=== PATIENT | male | born 1955 | race Caucasian/White ===

== ENCOUNTER 2021-02-23 08:17 | Inpatient (IN) | payer MEDICARE, OTHER ==
--- NOTE | 2021-02-23 08:32 | EDM.PDOC ---
ED HPI GENERAL MEDICAL PROBLEM - General Chief Complaint: Neuro Symptoms/Deficits Stated Complaint: [facility] Time Seen by Provider: 02/23/21 08:24 Source of Information: Reports: Patient History Limitations: Reports: No Limitations - History of Present Illness INITIAL COMMENTS - FREE TEXT/NARRATIVE: 65-year-old male presents to the ED per [facility] ambulance. Patient apparently lives up near [place], [place]. Apparently he is and his will be coming along shortly. It appears that he developed a left- sided weakness particularly of his arm and leg sometime yesterday afternoon greater than 12 hours ago. He denies headache nausea or vomiting. He thinks he had a little breakfast this morning but he cannot remember. He does not believe he has any trouble swallowing. Patient chews tobacco and apparently drinks alcohol and fairly large quantities on a daily basis. It has been years since he has been seen by Onset: Sudden Onset Date: 02/22/21 Onset Time: 13:00 (To the best of his recollection symptoms started after dinner yesterday.) Duration: Hour(s):, Constant, Getting Worse (Left-sided weakness arm and leg) Location: Reports: Upper Extremity, Left (Left arm and leg weakness), Lower Extremity, Left Quality: Reports: Other (Left arm and leg weakness.) Severity: Severe Improves with: Reports: None Worsens with: Reports: None Context: Reports: Other (Sudden loss of function left arm and leg yesterday p.m.). Denies: Activity, Exercise, Lifting, Sick Contact, Trauma Associated Symptoms: Reports: Cough, Malaise, Shortness of Breath, Weakness (Left arm and leg. Cannot walk.). Denies: Confusion, Chest Pain, cough w sputum (Chronic cough), Diaphoresis, Fever/Chills, Headaches, Loss of Appetite, Nausea/Vomiting, Rash, Seizure, Syncope Treatments CORRECTIONAL TREATMENT SPECIALIST: Reports: Other (see below) (None.) - Related Data Allergies Allergy/AdvReac Type Severity Reaction Status Date / Time No Known Allergies Allergy Verified 02/23/21 08:50 Past Medical History Cardiovascular History: Reports: Hypertension Psychiatric History: Reports: Other (See Below) (Alcohol dependency) Social & Family History - Tobacco Use Tobacco Use Within Last Twelve Months: Smokeless Tobacco - Alcohol Use Alcohol Use History: Yes Days Per Week of Alcohol Use: 7 (Thinks on average 3 beers per day.) Number of Drinks Per Day: 7 Number of Drinks Per Day Comment: 3 Total Drinks Per Week: 49 Alcohol Use in Last Twelve Months: Yes ED ROS GENERAL - Review of Systems Review Of Systems: See Below Constitutional: Reports: Malaise, Weakness, Fatigue, Decreased Appetite. Denies: Fever, Chills HEENT: Reports: Glasses Respiratory: Reports: Shortness of Breath (For reading), Wheezing, Cough, Sputum. Denies: Pleuritic Chest Pain Cardiovascular: Reports: Blood Pressure Problem, Dyspnea on Exertion (Both lower legs.), Edema. Denies: Chest Pain, Claudication, Lightheadedness Endocrine: Reports: Fatigue GI/Abdominal: Reports: Diarrhea (Stools are almost always on the looser side.), Nausea. Denies: Vomiting (Occasional nausea) : Reports: Frequency, Incontinence (Nocturia x3. Occasional incontinence of urine), Other Musculoskeletal: Reports: Back Pain, Joint Pain Skin: Reports: Bruising (Knees hips and neck at times. Bruises easily) Neurological: Reports: Tremors (Intermittently.), Weakness (Weakness left arm and leg developing yesterday). Denies: Confusion, Dizziness, Headache, Numbness , Paresthesia, Tingling, Trouble Speaking, Gait Disturbance Psychiatric: Reports: No Symptoms Hematologic/Lymphatic: Reports: No Symptoms Immunologic: Reports: No Symptoms ED EXAM, NEURO - Physical Exam Exam: See Below Exam Limited By: No Limitations General Appearance: Alert, WD/WN, Mild Distress, Thin (Appears uncapped.), Other (Heart rate is 86/min and sinus. O2 sats 96% on room air. Temperature 36.8 degrees. Blood pressure not yet available) Eye Exam: Bilateral Eye: Other (Purulent debris medial canthus right eye) Ears: Normal TMs Throat/Mouth: Normal Inspection, Normal Oropharynx, Other (Tongue is coated with tobacco chew. Uvula is in the midline). No: Normal Teeth Head Exam: Atraumatic, Normocephalic, Other (No outward signs of head or facial trauma) Neck: Normal Inspection, Supple, Non-Tender, Full Range of Motion. No: Carotid Bruit, Lymphadenopathy (L), Lymphadenopathy (R) Respiratory/Chest: No Respiratory Distress, No Accessory Muscle Use, Wheezing (Scattered expiratory wheezes.). No: Lungs Clear, Normal Breath Sounds Cardiovascular: Regular Rate, Rhythm, No Gallop, No Murmur, No Rub. No: Normal Peripheral Pulses, No Edema GI/Abdominal: Normal Bowel Sounds, Soft, Non-Tender, No Organomegaly, No Mass, Pelvis Stable, Other (Mild umbilical hernia easily reducible.). No: Hepatomegaly, Splenomegaly Neurological: Alert, Normal Mood/Affect, CN II-XII Intact, Oriented x 3, Abnormal Finger to Nose (Unable to perform on the left side.), Other (Patient has a dense left-sided hemiparesis. He is able to clinical supervisor my fingers very lightly on the left side. He cannot lift the arm above his body by more than 3 to 4 inches. He prefers to keep his left knee flexed. He cannot lift the leg off the gurney in full extension.). No: Normal Dorsiflexion, Normal Plantar Flexion, Normal Gait, Normal Reflexes, No Motor/Sensory Deficits DTR: 0: Achilles (R), 1+: Bicep (R), Patella (R), Achilles (L), 3+: Bicep (L), Patella (L) Back Exam: Normal Inspection, Other (Patient requires assistance to be able to set up from the supine position.). No: CVA Tenderness (L), CVA Tenderness (R) Extremities: Pedal Edema (Gross pedal edema both lower extremities worse on the right as compared to the left. 4+ on the right 3+ on the left.), Other Psychiatric: Normal Affect, Normal Mood Skin Exam: Warm, Dry, Intact, Normal Color, No Rash #1 Interpretation EKG Date: 02/23/21 Time: 09:08 Rhythm: NSR Rate (Beats/Min): [address] [place]: Normal P-Wave: Present QRS: Other (Left ventricular hypertrophy pattern with strain. Q waves appreciated in V1 V2 compared with old anteroseptal myocardial infarction) ST-T: Other (Nonspecific T wave flattening in leads I and aVL) QT: Prolonged (Mildly prolonged) EKG Interpretation Comments: Abnormal ECG Course - Vital Signs Last Recorded V/S: Last Vital Signs Temp 36.4 C 02/23/21 12:43 Pulse 77 02/23/21 12:43 Resp 20 02/23/21 12:43 BP 153/84 H 02/23/21 12:43 Pulse Ox 96 08/26/21 12:43 - Orders/Labs/Meds Orders: Active Orders 24 hr Category Date Time Status Admission Status [Patient Status] [ADT] Routine ADT 02/23/21 12:16 Active CULTURE URINE [MREF] Stat Lab 02/23/21 09:35 Received Dextrose 5%-Lactated Ringers 1,000 ml Med 02/23/21 08:45 Active IV ASDIRECTED Medication Orders Atorvastatin Calcium (Atorvastatin 40 Mg Tab) 40 mg PO BEDTIME CLAUDIO Enalaprilat (Enalaprilat 1.25 Mg/Ml Sdv) 1.25 mg IVPUSH Q6H PRN PRN Reason: Hypertension Heparin Sodium (Porcine) (Heparin Sodium 5,000 Units/Ml Vial) 5,000 units SUBCUT Q8H CLAUDIO Dextrose/Lactated Ringer's (Dextrose 5%-Lactated Ringers) 1,000 mls @ 125 mls/hr IV ASDIRECTED CLAUDIO Last Admin: 02/23/21 08:53 Dose: 125 mls/hr Documented by: RENEA Sodium Chloride (Normal Saline) 1,000 mls @ 125 mls/hr IV ASDIRECTED CLAUDIO Miscellaneous Information (Remove Nicotine Patch) 1 ea TRDERM DAILY [facility] Morphine Sulfate (Morphine 2 Mg/Ml Syringe) 2 mg IVPUSH Q2H PRN PRN Reason: Pain (severe 7-10) Stop: 02/24/21 13:20 Nicotine (Nicotine 14 Mg/24 Hr Patch) 14 mg TRDERM DAILY [facility] Ondansetron HCl (Ondansetron 4 Mg Tab.Dis) 4 mg PO Q4H PRN PRN Reason: nausea, able to take PO Labs: Laboratory Tests 02/23/21 02/23/21 02/23/21 Range/Units 08:30 08:30 08:30 WBC 8.99 (4.23-9.07) K/mm3 RBC 4.54 L (4.63-6.08) M/mm3 Hgb 14.2 (13.7-17.5) gm/dl Hct 41.9 (40.1-51.0) % MCV 92.3 H (79.0-92.2) fl MCH 31.3 (25.7-32.2) pg MCHC 33.9 (32.2-35.5) g/dl RDW Std Deviation 46.0 H (35.1-43.9) fL Plt Count 180 (163-337) K/mm3 MPV 10.3 (9.4-12.3) fl Neut % (Auto) 74.2 H (34.0-67.9) % Lymph % (Auto) 17.0 L (21.8-53.1) % [place] % (Auto) 8.0 (5.3-12.2) % Eos % (Auto) 0.4 L (0.8-7.0) Baso % (Auto) 0.3 (0.1-1.2) % Neut # (Auto) 6.66 H (1.78-5.38) K/mm3 Lymph # (Auto) 1.53 (1.32-3.57) K/mm3 [place] # (Auto) 0.72 (0.30-0.82) K/mm3 Eos # (Auto) 0.04 (0.04-0.54) K/mm3 Baso # (Auto) 0.03 (0.01-0.08) K/mm3 PT 11.9 (9.7-12.0) SECONDS INR 1.11 APTT 26.7 (21.7-31.4) SECONDS Sodium 139 (136-145) mEq/L Potassium 3.6 (3.5-5.1) mEq/L Chloride 101 (98-107) mEq/L Carbon Dioxide 29 (21-32) mEq/L Anion Gap 12.6 (5-15) BUN 16 (7-18) mg/dL Creatinine 0.8 (0.7-1.3) mg/dL Est Cr Clr Drug Dosing 80.48 mL/min Estimated GFR (MDRD) > 60 (>60) mL/min BUN/Creatinine Ratio 20.0 H (14-18) Glucose 104 H (70-99) mg/dL Lactic Acid (0.4-2.0) mmol/L Calcium 9.1 (8.5-10.1) mg/dL Magnesium 1.8 (1.8-2.4) mg/dL Total Bilirubin 1.1 H (0.2-1.0) mg/dL GGT (15-85) U/L AST 17 (15-37) U/L ALT 14 L (16-63) U/L Alkaline Phosphatase 69 (46-116) U/L CK-MB (CK-2) 0.8 (0-3.6) ng/ml Troponin I < 0.017 (0.00-0.056) ng/mL C-Reactive Protein 1.3 H* (<1.0) mg/dL NT-Pro-B Natriuret Pep (0-125) pg/mL Total Protein 7.8 (6.4-8.2) g/dl Albumin 3.8 (3.4-5.0) g/dl Globulin 4.0 gm/dL Albumin/Globulin Ratio 1.0 (1-2) PSA Screen (0.0-4.0) ng/mL Urine Color (Yellow) Urine Appearance (Clear) Urine pH (5.0-8.0) Ur Specific [place] (1.005-1.030) Urine Protein (Negative) Urine Glucose (UA) (Negative) Urine Ketones (Negative) Urine Occult Blood (Negative) Urine Nitrite (Negative) Urine Bilirubin (Negative) Urine Urobilinogen (0.2-1.0) Ur Leukocyte Esterase (Negative) U Hyaline Cast (Auto) (0-5) /lpf Urine RBC (0-5) /hpf Urine WBC (0-5) /hpf Urine WBC Clumps (NOT SEEN) /hpf Ur Epithelial Cells (0-5) /hpf Amorphous Sediment (NOT SEEN) /hpf Urine Bacteria (FEW) /hpf Urine Mucus (FEW) /hpf Ethyl Alcohol (0.00) gm% SARS-CoV-2 RNA (GAVIN) (NEGATIVE) 02/23/21 02/23/21 02/23/21 Range/Units 08:30 08:30 08:30 WBC (4.23-9.07) K/mm3 RBC (4.63-6.08) M/mm3 Hgb (13.7-17.5) gm/dl Hct (40.1-51.0) % MCV (79.0-92.2) fl MCH (25.7-32.2) pg MCHC (32.2-35.5) g/dl RDW Std Deviation (35.1-43.9) fL Plt Count (163-337) K/mm3 MPV (9.4-12.3) fl Neut % (Auto) (34.0-67.9) % Lymph % (Auto) (21.8-53.1) % [place] % (Auto) (5.3-12.2) % Eos % (Auto) (0.8-7.0) Baso % (Auto) (0.1-1.2) % Neut # (Auto) (1.78-5.38) K/mm3 Lymph # (Auto) (1.32-3.57) K/mm3 [place] # (Auto) (0.30-0.82) K/mm3 Eos # (Auto) (0.04-0.54) K/mm3 Baso # (Auto) (0.01-0.08) K/mm3 PT (9.7-12.0) SECONDS INR APTT (21.7-31.4) SECONDS Sodium (136-145) mEq/L Potassium (3.5-5.1) mEq/L Chloride (98-107) mEq/L Carbon Dioxide (21-32) mEq/L Anion Gap (5-15) BUN (7-18) mg/dL Creatinine (0.7-1.3) mg/dL Est Cr Clr Drug Dosing mL/min Estimated GFR (MDRD) (>60) mL/min BUN/Creatinine Ratio (14-18) Glucose (70-99) mg/dL Lactic Acid 1.1 (0.4-2.0) mmol/L Calcium (8.5-10.1) mg/dL Magnesium (1.8-2.4) mg/dL Total Bilirubin (0.2-1.0) mg/dL GGT (15-85) U/L AST (15-37) U/L ALT (16-63) U/L Alkaline Phosphatase (46-116) U/L CK-MB (CK-2) (0-3.6) ng/ml Troponin I (0.00-0.056) ng/mL C-Reactive Protein (<1.0) mg/dL NT-Pro-B Natriuret Pep 3090 H (0-125) pg/mL Total Protein (6.4-8.2) g/dl Albumin (3.4-5.0) g/dl Globulin gm/dL Albumin/Globulin Ratio (1-2) PSA Screen (0.0-4.0) ng/mL Urine Color (Yellow) Urine Appearance (Clear) Urine pH (5.0-8.0) Ur Specific [place] (1.005-1.030) Urine Protein (Negative) Urine Glucose (UA) (Negative) Urine Ketones (Negative) Urine Occult Blood (Negative) Urine Nitrite (Negative) Urine Bilirubin (Negative) Urine Urobilinogen (0.2-1.0) Ur Leukocyte Esterase (Negative) U Hyaline Cast (Auto) (0-5) /lpf Urine RBC (0-5) /hpf Urine WBC (0-5) /hpf Urine WBC Clumps (NOT SEEN) /hpf Ur Epithelial Cells (0-5) /hpf Amorphous Sediment (NOT SEEN) /hpf Urine Bacteria (FEW) /hpf Urine Mucus (FEW) /hpf Ethyl Alcohol (0.00) gm% SARS-CoV-2 RNA (GAVIN) Negative (NEGATIVE) 02/23/21 02/23/21 02/23/21 Range/Units 08:30 08:30 08:31 WBC (4.23-9.07) K/mm3 RBC (4.63-6.08) M/mm3 Hgb (13.7-17.5) gm/dl Hct (40.1-51.0) % MCV (79.0-92.2) fl MCH (25.7-32.2) pg MCHC (32.2-35.5) g/dl RDW Std Deviation (35.1-43.9) fL Plt Count (163-337) K/mm3 MPV (9.4-12.3) fl Neut % (Auto) (34.0-67.9) % Lymph % (Auto) (21.8-53.1) % [place] % (Auto) (5.3-12.2) % Eos % (Auto) (0.8-7.0) Baso % (Auto) (0.1-1.2) % Neut # (Auto) (1.78-5.38) K/mm3 Lymph # (Auto) (1.32-3.57) K/mm3 [place] # (Auto) (0.30-0.82) K/mm3 Eos # (Auto) (0.04-0.54) K/mm3 Baso # (Auto) (0.01-0.08) K/mm3 PT (9.7-12.0) SECONDS INR APTT (21.7-31.4) SECONDS Sodium (136-145) mEq/L Potassium (3.5-5.1) mEq/L Chloride (98-107) mEq/L Carbon Dioxide (21-32) mEq/L Anion Gap (5-15) BUN (7-18) mg/dL Creatinine (0.7-1.3) mg/dL Est Cr Clr Drug Dosing mL/min Estimated GFR (MDRD) (>60) mL/min BUN/Creatinine Ratio (14-18) Glucose (70-99) mg/dL Lactic Acid (0.4-2.0) mmol/L Calcium (8.5-10.1) mg/dL Magnesium (1.8-2.4) mg/dL Total Bilirubin (0.2-1.0) mg/dL GGT 26 (15-85) U/L AST (15-37) U/L ALT (16-63) U/L Alkaline Phosphatase (46-116) U/L CK-MB (CK-2) (0-3.6) ng/ml Troponin I (0.00-0.056) ng/mL C-Reactive Protein (<1.0) mg/dL NT-Pro-B Natriuret Pep (0-125) pg/mL Total Protein (6.4-8.2) g/dl Albumin (3.4-5.0) g/dl Globulin gm/dL Albumin/Globulin Ratio (1-2) PSA Screen 0.3 (0.0-4.0) ng/mL Urine Color Yellow (Yellow) Urine Appearance Clear (Clear) Urine pH 7.0 (5.0-8.0) Ur Specific [place] 1.020 (1.005-1.030) Urine Protein Negative (Negative) Urine Glucose (UA) Negative (Negative) Urine Ketones Negative (Negative) Urine Occult Blood 1+ H (Negative) Urine Nitrite Negative (Negative) Urine Bilirubin Negative (Negative) Urine Urobilinogen 1.0 (0.2-1.0) Ur Leukocyte Esterase 3+ H (Negative) U Hyaline Cast (Auto) 0-5 (0-5) /lpf Urine RBC 10-20 H (0-5) /hpf Urine WBC 50-75 H (0-5) /hpf Urine WBC Clumps Few (NOT SEEN) /hpf Ur Epithelial Cells Not seen (0-5) /hpf Amorphous Sediment Many H (NOT SEEN) /hpf Urine Bacteria Many H (FEW) /hpf Urine Mucus Not seen (FEW) /hpf Ethyl Alcohol 0.00 (0.00) gm% SARS-CoV-2 RNA (GAVIN) (NEGATIVE) Meds: Medications Generic Name Dose Route Start Last Admin Trade Name Bailee PRN Reason Stop Dose Admin Atorvastatin Calcium 40 mg 02/23/21 21:00 Atorvastatin 40 Mg Tab PO BEDTIME CLAUDIO Enalaprilat 1.25 mg 02/23/21 13:48 Enalaprilat 1.25 Mg/Ml Sdv IVPUSH Q6H PRN Hypertension Heparin Sodium (Porcine) 5,000 units 02/23/21 14:00 Heparin Sodium 5,000 Units/Ml Vial SUBCUT Q8H CLAUDIO Dextrose/Lactated Ringer's 1,000 mls @ 125 mls/hr 02/23/21 08:45 02/23/21 08:53 Dextrose 5%-Lactated Ringers IV 125 mls/hr ASDIRECTED CLAUDIO Administration Sodium Chloride 1,000 mls @ 125 mls/hr 02/23/21 13:30 Normal Saline IV ASDIRECTED CLAUDIO Miscellaneous Information 1 ea 02/25/21 09:00 Remove Nicotine Patch TRDERM DAILY [facility] Morphine Sulfate 2 mg 02/23/21 13:18 Morphine 2 Mg/Ml Syringe IVPUSH 02/24/21 13:20 Q2H PRN Pain (severe 7-10) Nicotine 14 mg 02/24/21 09:00 Nicotine 14 Mg/24 Hr Patch TRDERM DAILY [facility] Ondansetron HCl 4 mg 02/23/21 13:18 Ondansetron 4 Mg Tab.Dis PO Q4H PRN nausea, able to take PO Discontinued Medications Generic Name Dose Route Start Last Admin Trade Name Bailee PRN Reason Stop Dose Admin Amlodipine Besylate 10 mg 02/23/21 12:12 02/23/21 12:22 Amlodipine 10 Mg Tab PO 02/23/21 12:13 10 mg ONETIME ONE Administration Enalaprilat 1.25 mg 02/23/21 12:13 02/23/21 12:32 Enalaprilat 1.25 Mg/Ml Sdv IVPUSH 02/23/21 12:14 1.25 mg ONETIME ONE Administration Ceftriaxone Sodium 2 gm/ 100 mls @ 200 mls/hr 02/23/21 12:20 02/23/21 12:39 Sodium Chloride IV 02/23/21 12:49 200 mls/hr ONETIME ONE Administration Labetalol HCl 20 mg 02/23/21 12:12 02/23/21 12:25 Labetalol 100 Mg/20 Ml Mdv IVPUSH 02/23/21 12:13 20 mg ONETIME ONE Administration Protocol Lorazepam 1 mg 02/23/21 09:44 02/23/21 09:59 Lorazepam 2 Mg/Ml Sdv IVPUSH 02/23/21 09:45 1 mg ONETIME ONE Administration - Radiology Interpretation Free Text/Narrative:: 65-year-old male presents to the ED per [facility] ambulance from his residence up near [place], [place]. History suggest he is a heavy alcoholic user on a daily basis and chews tobacco. He has not seen a doctor for many years. Abatement Worker appreciated his blood pressure was markedly elevated at 220/122 when they picked him up. Patient denies headache. He has a dense left- sided hemiparesis which apparently started yesterday p.m. shortly after noon but he is not sure. We will confirm this with his when she arrives. At any rate he appears to be outside of the window for any thrombolytic therapy. He will have CT of his head performed. Routine labs performed including a COVID-19 screen as he will require hospitalization as he is unable to walk. - Re-Assessments/Exams Free Text/Narrative Re-Assessment/Exam: 02/23/21 09:13 CT of the head has been performed without IV contrast. It was compared with prior MRI of the brain done on 28 February 2011. Ventricles along with the basal cisterns and sulci over the convexities are moderately prominent. Diminished density is noted within the periventricular and subcortical white matter. Old lacunar infarcts are noted within the basal ganglia on both sides. Atrophy is also noted within the cerebellum. Old lacunar infarct is noted within the white matter of the left cerebellum. No other abnormal parenchymal densities are seen. No evidence of intracranial hemorrhage is seen. No midline shift or mass-effect is seen. Bone window settings were reviewed which show no acute abnormality within the visualized mastoid or paranasal sinuses. No acute calvarial abnormality is appreciated. Chest x-ray done portably reveals heart has a slight left ventricular configuration. Tortuous thoracic aorta is seen. Several nodules are noted within the left lung base which appear fairly dense and most likely represent granulomas. Lungs otherwise are clear. Degenerative changes noted within the left shoulder. Mild scoliosis is noted within the spine. Osteopenia is noted. Carotid artery calcification is seen. 02/23/21 09:45 is here now and she believes that she noticed left-sided weakness around 1400 hrs. 2 days ago February 21. He is quite agitated at this time about all of the aguilar on. His believes that he will not lie still in the MRI suite. He will therefore be given Ativan 1 mg IV pretest. 02/23/21 10:04 White count is 8.99 with 74.2% neutrophils. Hemoglobin is 14.2 with hematocrit of 41.9. MCV is 92.3. Platelet counts 180,000. PT is 11.9 with an INR of 1.11. PTT is 26.7. Sodium 139 with potassium of 3.6. Chloride 101 with a bicarb of 29. Anion gap is 12.6. BUN is 16 with a creatinine of 0.8 and a GFR greater than 60. Glucose is 104. Lactic acid is 1.1. Calcium is 9.1. Magnesium is 1.8. Bilirubin minimally elevated at 1.1. GGT is 26. AST is 17. ALT is 14 alkaline phosphatase is 69. CK-MB fraction is 0.8 with a troponin I of less than 0.017. C-reactive protein is 1.3. BNP is elevated at 3090. Total protein 7.8 with an albumin fraction of 3.8. Blood alcohol at this time is 0.00. COVID-19 screen is negative. 02/23/21 11:47 MRI of the brain has been completed without contrast. Ventricles along with the basal cisterns and sulci over the convexities are moderately prominent. Scattered areas of increased signal are seen within the periventricular and subcortical white matter compatible with small vessel ischemic demyelination change. Scattered lacunar infarcts are seen. Small diffusion abnormalities are noted within the right periventricular white matter located in the parietal region as well as the right manzanares radiata. This is compatible with small acute white matter infarcts. 02/23/21 12:13 I discussed the findings with the patient's . 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 She has many doctors appointments for him several times over the last 5 years and he will get in the car to go to the doctor. He used to be on Bystolic and we believe lisinopril for hypertension control. Blood pressure remains elevated anywhere from 182-225 systolic over 104-128. These values are inaccurate as the patient continues to move in response to blood pressure cuff filling. I am going to give him labetalol 20 mg IV and Vasotec 1.25 mg IV to bring his pressure down to around 160 systolic. He will also be given amlodipine 10 mg p.o. which will start working in 2 to 4 hours. I discussed the case with Dr. Dane Tony on-call hospitalist and the plan will be to admit the patient to the [facility] surgery floor. Admission orders will be placed at this time. 02/23/21 12:20 Urinalysis reveals 3+ leukocyte esterase and 1+ occult blood. The smear reveals 10-20 RBCs per high-power field and 50-75 white blood cells per high-power field with many bacteria appreciated. Urine culture will be ordered. Likely has prostatitis. Patient will be given Rocephin 2 g I 02/23/21 13:00: Blood pressure has come down to 150/88. Departure - Departure Time of Disposition: 13:30 Disposition: Admitted As Inpatient 64 Condition: Serious Clinical Impression: Malignant hypertension Cerebrovascular accident Qualifiers: CVA mechanism: thrombosis Precerebral and cerebral artery: middle cerebral artery Laterality of affected vessel: right Qualified Code(s): I63.311 - Cerebral infarction due to thrombosis of right middle cerebral artery Urinary tract infection Qualifiers: Urinary tract infection type: site unspecified Hematuria presence: without hematuria Qualified Code(s): N39.0 - Urinary tract infection, site not specified - Discharge Information Sepsis Event Note (ED) - Focused Exam Vital Signs: Vital Signs Temp Pulse Resp BP BP Pulse Ox 02/23/21 12:43 36.4 C 77 20 153/84 H 96 02/23/21 12:32 196/92 H 02/23/21 12:22 200/108 H 02/23/21 11:34 91 16 222/123 H 97 02/23/21 08:56 84 22 H 189/108 H 97 02/23/21 08:34 36.9 C 89 16 215/119 H 99 - My Orders Last 24 Hours: My Active Orders 02/23/21 08:45 Dextrose 5%-Lactated Ringers 1,000 ml IV ASDIRECTED 02/23/21 09:35 CULTURE URINE [MREF] Stat 02/23/21 12:16 Admission Status [Patient Status] [ADT] Routine - Assessment/Plan Last 24 Hours: My Active Orders 02/23/21 08:45 Dextrose 5%-Lactated Ringers 1,000 ml IV ASDIRECTED 02/23/21 09:35 CULTURE URINE [MREF] Stat 02/23/21 12:16 Admission Status [Patient Status] [ADT] Routine
[2021-02-23] MEDS ORDERED: Dextrose 5%-Lactated Ringers 1,000 ML IV SCH (08:45)
--- NOTE | 2021-02-23 08:54 | CT ---
Head CT Technique: Multiple axial sections were obtained through the brain. Intravenous contrast was not utilized. Reconstructed coronal and sagittal images were obtained. Comparison: Prior MRI brain of 02/28/11. Findings: Ventricles along with basal cisterns and sulci over the convexities are moderately prominent. Diminished density is noted within the periventricular and subcortical white matter. Old lacunar infarcts are noted within the basal ganglia on both sides. Atrophy is also noted within the cerebellum. Old lacunar infarct is noted within the white matter of the left cerebellum. No other abnormal parenchymal densities are seen. No evidence of intracranial hemorrhage is seen. No midline shift or mass-effect is seen. Bone window settings were reviewed which show no acute abnormality within the visualized mastoid or paranasal sinuses. No acute calvarial abnormality is appreciated. Impression: 1. Diffuse senescent change as described above. This change has increased from previous MRI. 2. No definite acute intracranial abnormality is appreciated. Please correlate if MRI is needed for further evaluation. Diagnostic code #2
--- NOTE | 2021-02-23 09:02 | CR ---
Chest: Portable view of the chest was obtained. Comparison: No prior chest imaging is available. Heart has a slight left ventricular configuration. Tortuous thoracic aorta is seen. Several nodules are noted within the left lung base which appear fairly dense and most likely represent granulomas. Lungs otherwise are clear. Degenerative change is noted within the left shoulder. Mild scoliosis is noted within the spine. Osteopenia is noted. Carotid artery calcification is seen. Impression: 1. Findings as described above. 2. Nothing acute is otherwise seen. Diagnostic code #2
[2021-02-23] MEDS ORDERED: LORazepam 2 MG/ML SDV IVPUSH ONE (09:44)
--- NOTE | 2021-02-23 11:34 | MR ---
MRI brain Technique: T1 sagittal; T2, T2 FLAIR, T1 and diffusion axial; T1 coronal images were also obtained. Comparison: Prior head CT study performed earlier on the same day (8:30 AM). Findings: Ventricles along with basal cisterns and sulci over the convexities are moderately prominent. Scattered areas of increased signal are seen within the periventricular and subcortical white matter compatible with small vessel ischemic demyelination change. Scattered lacunar infarcts are seen. Small diffusion abnormalities are noted within the right periventricular white matter located in the parietal region as well as the right manzanares radiata. This is compatible with small acute white matter infarcts. Impression: 1. Diffuse senescent change as noted above. 2. Several small acute white matter infarcts within the periventricular white matter in the right parietal region and adjacent small area within the right manzanares radiata. 3. No other acute abnormality is appreciated. Diagnostic code #3
[2021-02-23] MEDS ORDERED: amLODIPine 10 MG Tab PO ONE (12:12)
[2021-02-23] MEDS ORDERED: Labetalol 100 MG/20 ML MDV IVPUSH ONE (12:12)
[2021-02-23] MEDS ORDERED: Enalaprilat 1.25 MG/ML SDV IVPUSH ONE (12:13)
[2021-02-23] MEDS ORDERED: cefTRIAXone 2 GM in Sodium Chloride 0.9% 100 ML IV ONE (12:20)
[2021-02-23] MEDS ORDERED: Morphine 2 MG/ML SYRINGE IVPUSH PRN (13:18)
[2021-02-23] MEDS ORDERED: Ondansetron 4 MG Tab.DIS PO PRN (13:18)
--- NOTE | 2021-02-23 13:31 | PCM.HP.2 ---
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 Source of Information: Patient, Family History Limitations: Reports: No Limitations - History of Present Illness Onset of Symptoms: Reports: Sudden Duration of Symptoms: Reports: Day(s): (Symptoms started 2 days ago.) Location: Reports: Generalized Severity: Mild Improves with: Reports: None Worsens with: Reports: None Associated Symptoms: Reports: Cough (Cough when eating and drinking) - Related Data Allergies/Adverse Reactions: Allergies Allergy/AdvReac Type Severity Reaction Status Date / Time No Known Allergies Allergy Verified 02/23/21 08:50 Past Medical History HEENT History: Reports: Hard of Hearing Cardiovascular History: Reports: Hypertension Respiratory History: Reports: None Gastrointestinal History: Reports: None Genitourinary History: Reports: None Musculoskeletal History: Reports: None Neurological History: Reports: CVA Psychiatric History: Reports: Other (See Below) (Alcohol dependency) Endocrine/Metabolic History: Reports: None Hematologic History: Reports: None Immunologic History: Reports: None Oncologic (Cancer) History: Reports: None Dermatologic History: Reports: None - Infectious Disease History Infectious Disease History: Reports: None Social & Family History - Tobacco Use Tobacco Use Status *Q: Current Every Day Tobacco User Tobacco Use Within Last Twelve Months: Smokeless Tobacco - Alcohol Use Days Per Week of Alcohol Use: 7 (Thinks on average 3 beers per day.) Number of Drinks Per Day: 7 Total Drinks Per Week: 49 - Recreational Drug Use Recreational Drug Use: No - Living Situation & Occupation Living situation: Reports: , with Spouse 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) H&P Review of Systems - Review of Systems: Review Of Systems: See Below General: Reports: Weakness HEENT: Reports: Hearing Changes Pulmonary: Reports: No Symptoms Cardiovascular: Reports: Edema Gastrointestinal: Reports: No Symptoms Genitourinary: Reports: No Symptoms Musculoskeletal: Reports: No Symptoms Skin: Reports: No Symptoms Psychiatric: Reports: No Symptoms Neurological: Reports: Numbness, Difficulty Walking, Weakness, Change in Speech Hematologic/Lymphatic: Reports: No Symptoms Immunologic: Reports: No Symptoms Exam - Exam Exam: See Below - Vital Signs Vital Signs: Last Vital Signs Temp 36.4 C 02/23/21 12:43 Pulse 77 02/23/21 12:43 Resp 20 02/23/21 12:43 BP 153/84 H 02/23/21 12:43 Pulse Ox 96 02/23/21 12:43 Weight: 63.503 kg - Exam Quality Assessment: No: Supplemental Oxygen, DVT Prophylaxis General: Alert, Oriented, Cooperative HEENT: Conjunctiva Clear, EACs Clear, EOMI, Posterior Pharynx Clear (No uvula deviation), Other (Left-sided facial droop with left weakness and opening eye.), PERRLA. No: Hearing Intact (Hard of hearing), Mucosa Moist & [place] (Poor dentition, tobacco particles present) Neck: Supple, Trachea Midline Lungs: Clear to Auscultation, Normal Respiratory Effort Cardiovascular: Regular Rate, Regular Rhythm GI/Abdominal Exam: Normal Bowel Sounds, Soft, Non-Tender, No Distention (Male) Exam: Deferred Rectal (Males) Exam: Deferred Back Exam: No: Normal Inspection (Unable to set up), Full Range of Motion Extremities: Pedal Edema. No: Normal Inspection (Spastic left hemiparesis), Normal Range of Motion Skin: Warm, Dry, Intact Neurological: Hyperreflexia. No: Cranial Nerves Intact, Strength Equal Bilateral, Normal Gait (Left-sided hemiparesis) Neuro Extensive - Mental Status: Alert, Oriented x3, Memory Intact Neuro Extensive - Motor, Sensory, Reflexes: Abnormal Gait, Dysarthria, Facial Pa lsy wo Forehead, Hemeplagia (L). No: CN II-XII Intact (Left-sided facial droop with cranial nerve III weakness), Normal Reflexes, Receptive Aphasia, Expressive Aphasia Psychiatric: Alert, Normal Affect, Normal Mood - Patient Data Lab Results Last 24 hrs: Laboratory Results - last 24 hr 02/23/21 02/23/21 02/23/21 Range/Units 08:30 08:30 08:30 WBC 8.99 (4.23-9.07) K/mm3 RBC 4.54 L (4.63-6.08) M/mm3 Hgb 14.2 (13.7-17.5) gm/dl Hct 41.9 (40.1-51.0) % MCV 92.3 H (79.0-92.2) fl MCH 31.3 (25.7-32.2) pg MCHC 33.9 (32.2-35.5) g/dl RDW Std Deviation 46.0 H (35.1-43.9) fL Plt Count 180 (163-337) K/mm3 MPV 10.3 (9.4-12.3) fl Neut % (Auto) 74.2 H (34.0-67.9) % Lymph % (Auto) 17.0 L (21.8-53.1) % [place] % (Auto) 8.0 (5.3-12.2) % Eos % (Auto) 0.4 L (0.8-7.0) Baso % (Auto) 0.3 (0.1-1.2) % Neut # (Auto) 6.66 H (1.78-5.38) K/mm3 Lymph # (Auto) 1.53 (1.32-3.57) K/mm3 [place] # (Auto) 0.72 (0.30-0.82) K/mm3 Eos # (Auto) 0.04 (0.04-0.54) K/mm3 Baso # (Auto) 0.03 (0.01-0.08) K/mm3 PT 11.9 (9.7-12.0) SECONDS INR 1.11 APTT 26.7 (21.7-31.4) SECONDS Sodium 139 (136-145) mEq/L Potassium 3.6 (3.5-5.1) mEq/L Chloride 101 (98-107) mEq/L Carbon Dioxide 29 (21-32) mEq/L Anion Gap 12.6 (5-15) BUN 16 (7-18) mg/dL Creatinine 0.8 (0.7-1.3) mg/dL Est Cr Clr Drug Dosing 80.48 mL/min Estimated GFR (MDRD) > 60 (>60) mL/min BUN/Creatinine Ratio 20.0 H (14-18) Glucose 104 H (70-99) mg/dL Lactic Acid (0.4-2.0) mmol/L Calcium 9.1 (8.5-10.1) mg/dL Magnesium 1.8 (1.8-2.4) mg/dL Total Bilirubin 1.1 H (0.2-1.0) mg/dL GGT (15-85) U/L AST 17 (15-37) U/L ALT 14 L (16-63) U/L Alkaline Phosphatase 69 (46-116) U/L CK-MB (CK-2) 0.8 (0-3.6) ng/ml Troponin I < 0.017 (0.00-0.056) ng/mL C-Reactive Protein 1.3 H* (<1.0) mg/dL NT-Pro-B Natriuret Pep (0-125) pg/mL Total Protein 7.8 (6.4-8.2) g/dl Albumin 3.8 (3.4-5.0) g/dl Globulin 4.0 gm/dL Albumin/Globulin Ratio 1.0 (1-2) Urine Color (Yellow) Urine Appearance (Clear) Urine pH (5.0-8.0) Ur Specific [place] (1.005-1.030) Urine Protein (Negative) Urine Glucose (UA) (Negative) Urine Ketones (Negative) Urine Occult Blood (Negative) Urine Nitrite (Negative) Urine Bilirubin (Negative) Urine Urobilinogen (0.2-1.0) Ur Leukocyte Esterase (Negative) U Hyaline Cast (Auto) (0-5) /lpf Urine RBC (0-5) /hpf Urine WBC (0-5) /hpf Urine WBC Clumps (NOT SEEN) /hpf Ur Epithelial Cells (0-5) /hpf Amorphous Sediment (NOT SEEN) /hpf Urine Bacteria (FEW) /hpf Urine Mucus (FEW) /hpf Ethyl Alcohol (0.00) gm% SARS-CoV-2 RNA (GAVIN) (NEGATIVE) 02/23/21 02/23/21 02/23/21 Range/Units 08:30 08:30 08:30 WBC (4.23-9.07) K/mm3 RBC (4.63-6.08) M/mm3 Hgb (13.7-17.5) gm/dl Hct (40.1-51.0) % MCV (79.0-92.2) fl MCH (25.7-32.2) pg MCHC (32.2-35.5) g/dl RDW Std Deviation (35.1-43.9) fL Plt Count (163-337) K/mm3 MPV (9.4-12.3) fl Neut % (Auto) (34.0-67.9) % Lymph % (Auto) (21.8-53.1) % [place] % (Auto) (5.3-12.2) % Eos % (Auto) (0.8-7.0) Baso % (Auto) (0.1-1.2) % Neut # (Auto) (1.78-5.38) K/mm3 Lymph # (Auto) (1.32-3.57) K/mm3 [place] # (Auto) (0.30-0.82) K/mm3 Eos # (Auto) (0.04-0.54) K/mm3 Baso # (Auto) (0.01-0.08) K/mm3 PT (9.7-12.0) SECONDS INR APTT (21.7-31.4) SECONDS Sodium (136-145) mEq/L Potassium (3.5-5.1) mEq/L Chloride (98-107) mEq/L Carbon Dioxide (21-32) mEq/L Anion Gap (5-15) BUN (7-18) mg/dL Creatinine (0.7-1.3) mg/dL Est Cr Clr Drug Dosing mL/min Estimated GFR (MDRD) (>60) mL/min BUN/Creatinine Ratio (14-18) Glucose (70-99) mg/dL Lactic Acid 1.1 (0.4-2.0) mmol/L Calcium (8.5-10.1) mg/dL Magnesium (1.8-2.4) mg/dL Total Bilirubin (0.2-1.0) mg/dL GGT (15-85) U/L AST (15-37) U/L ALT (16-63) U/L Alkaline Phosphatase (46-116) U/L CK-MB (CK-2) (0-3.6) ng/ml Troponin I (0.00-0.056) ng/mL C-Reactive Protein (<1.0) mg/dL NT-Pro-B Natriuret Pep 3090 H (0-125) pg/mL Total Protein (6.4-8.2) g/dl Albumin (3.4-5.0) g/dl Globulin gm/dL Albumin/Globulin Ratio (1-2) Urine Color (Yellow) Urine Appearance (Clear) Urine pH (5.0-8.0) Ur Specific [place] (1.005-1.030) Urine Protein (Negative) Urine Glucose (UA) (Negative) Urine Ketones (Negative) Urine Occult Blood (Negative) Urine Nitrite (Negative) Urine Bilirubin (Negative) Urine Urobilinogen (0.2-1.0) Ur Leukocyte Esterase (Negative) U Hyaline Cast (Auto) (0-5) /lpf Urine RBC (0-5) /hpf Urine WBC (0-5) /hpf Urine WBC Clumps (NOT SEEN) /hpf Ur Epithelial Cells (0-5) /hpf Amorphous Sediment (NOT SEEN) /hpf Urine Bacteria (FEW) /hpf Urine Mucus (FEW) /hpf Ethyl Alcohol (0.00) gm% SARS-CoV-2 RNA (GAVIN) Negative (NEGATIVE) 02/23/21 02/23/21 Range/Units 08:30 08:31 WBC (4.23-9.07) K/mm3 RBC (4.63-6.08) M/mm3 Hgb (13.7-17.5) gm/dl Hct (40.1-51.0) % MCV (79.0-92.2) fl MCH (25.7-32.2) pg MCHC (32.2-35.5) g/dl RDW Std Deviation (35.1-43.9) fL Plt Count (163-337) K/mm3 MPV (9.4-12.3) fl Neut % (Auto) (34.0-67.9) % Lymph % (Auto) (21.8-53.1) % [place] % (Auto) (5.3-12.2) % Eos % (Auto) (0.8-7.0) Baso % (Auto) (0.1-1.2) % Neut # (Auto) (1.78-5.38) K/mm3 Lymph # (Auto) (1.32-3.57) K/mm3 [place] # (Auto) (0.30-0.82) K/mm3 Eos # (Auto) (0.04-0.54) K/mm3 Baso # (Auto) (0.01-0.08) K/mm3 PT (9.7-12.0) SECONDS INR APTT (21.7-31.4) SECONDS Sodium (136-145) mEq/L Potassium (3.5-5.1) mEq/L Chloride (98-107) mEq/L Carbon Dioxide (21-32) mEq/L Anion Gap (5-15) BUN (7-18) mg/dL Creatinine (0.7-1.3) mg/dL Est Cr Clr Drug Dosing mL/min Estimated GFR (MDRD) (>60) mL/min BUN/Creatinine Ratio (14-18) Glucose (70-99) mg/dL Lactic Acid (0.4-2.0) mmol/L Calcium (8.5-10.1) mg/dL Magnesium (1.8-2.4) mg/dL Total Bilirubin (0.2-1.0) mg/dL GGT 26 (15-85) U/L AST (15-37) U/L ALT (16-63) U/L Alkaline Phosphatase (46-116) U/L CK-MB (CK-2) (0-3.6) ng/ml Troponin I (0.00-0.056) ng/mL C-Reactive Protein (<1.0) mg/dL NT-Pro-B Natriuret Pep (0-125) pg/mL Total Protein (6.4-8.2) g/dl Albumin (3.4-5.0) g/dl Globulin gm/dL Albumin/Globulin Ratio (1-2) Urine Color Yellow (Yellow) Urine Appearance Clear (Clear) Urine pH 7.0 (5.0-8.0) Ur Specific [place] 1.020 (1.005-1.030) Urine Protein Negative (Negative) Urine Glucose (UA) Negative (Negative) Urine Ketones Negative (Negative) Urine Occult Blood 1+ H (Negative) Urine Nitrite Negative (Negative) Urine Bilirubin Negative (Negative) Urine Urobilinogen 1.0 (0.2-1.0) Ur Leukocyte Esterase 3+ H (Negative) U Hyaline Cast (Auto) 0-5 (0-5) /lpf Urine RBC 10-20 H (0-5) /hpf Urine WBC 50-75 H (0-5) /hpf Urine WBC Clumps Few (NOT SEEN) /hpf Ur Epithelial Cells Not seen (0-5) /hpf Amorphous Sediment Many H (NOT SEEN) /hpf Urine Bacteria Many H (FEW) /hpf Urine Mucus Not seen (FEW) /hpf Ethyl Alcohol 0.00 (0.00) gm% SARS-CoV-2 RNA (GAVIN) (NEGATIVE) Result Diagrams: 02/23/21 08:30 02/23/21 08:30 Sepsis Event Note - Focused Exam Vital Signs: Vital Signs Temp Pulse Resp BP BP Pulse Ox 02/23/21 12:43 36.4 C 77 20 153/84 H 96 02/23/21 12:32 196/92 H 02/23/21 12:22 200/108 H 02/23/21 11:34 91 16 222/123 H 97 02/23/21 08:56 84 22 H 189/108 H 97 02/23/21 08:34 36.9 C 89 16 215/119 H 99 *Q Meaningful Use (ADM) - VTE *Q VTE Mechanical Contraindications *Q: At Risk for Falls - Problem List (1) Acute cerebrovascular accident (CVA) due to embolism of right middle cerebral artery SNOMED Code(s): 034390791536968677 ICD Code: I63.411 - CEREB INFRC DUE TO EMBOLISM OF RIGHT MIDDLE CEREBRAL ARTERY Status: Acute Priority: High Current Visit: Yes (2) Hypertension SNOMED Code(s): 85755430 ICD Code: I10 - ESSENTIAL (PRIMARY) HYPERTENSION Status: Acute Priority: High Current Visit: Yes Problem Details: The patient requires permissive hypertension with systolic blood pressure between 150 and 170 mmHg to assist with cerebral perfusion Qualifiers: Hypertension type: primary hypertension Qualified Code(s): I10 - Essential (primary) hypertension (3) Spastic hemiparesis of left nondominant side due to acute cerebral infarction SNOMED Code(s): 779202947, 828670263 ICD Code: I63.9 - CEREBRAL INFARCTION, UNSPECIFIED; G81.14 - SPASTIC H EMIPLEGIA AFFECTING LEFT NONDOMINANT SIDE Status: Acute Priority: High Current Visit: Yes (4) Dysphagia due to recent cerebrovascular accident SNOMED Code(s): 73551369, 391017218 ICD Code: I69.391 - DYSPHAGIA FOLLOWING CEREBRAL INFARCTION Status: Acute Priority: High Current Visit: Yes (5) Pedal edema SNOMED Code(s): 521200210 ICD Code: R60.0 - LOCALIZED EDEMA Status: Acute Priority: High Current Visit: Yes (6) Tobacco use SNOMED Code(s): 615250572 ICD Code: Z72.0 - TOBACCO USE Status: Chronic Priority: High Current Visit: Yes Problem List Initiated/Reviewed/Updated: Yes Orders Last 24hrs: Active Orders 24 hr Category Date Time Status Admission Status [Patient Status] [ADT] Routine ADT 02/23/21 12:16 Active Bedrest Bedside Commode [RC] ASDIRECTED Care 02/23/21 13:18 Ordered Cardiac Monitoring [RC] CONTINUOUS Care 02/23/21 13:19 Ordered Oxygen Therapy [RC] PRN Care 02/23/21 13:18 Ordered VTE/DVT Education [RC] PER UNIT ROUTINE Care 02/23/21 13:18 Ordered Vital Signs [RC] Q4H Care 02/23/21 13:18 Ordered OT Evaluation and Treatment [CONS] Routine Cons 02/23/21 13:18 Ordered PT Evaluation and Treatment [CONS] Routine Cons 02/23/21 13:18 Ordered LIBRARY HISTORIAN Evaluation and Treatment [CONS] Routine Cons 02/23/21 13:18 Ordered Nothing per Oral Now Diet [DIET] Diet 02/23/21 Dinner Ordered Echo 2D wo Cont [US] Urgent Exams 02/23/21 13:18 Ordered CBC WITH AUTO DIFF [HEME] AM Lab 02/24/21 05:11 Ordered COMPREHENSIVE METABOLIC PN,CMP [CHEM] AM Lab 02/24/21 05:11 Ordered CULTURE URINE [MREF] Stat Lab 02/23/21 09:35 Received MAGNESIUM [CHEM] AM Lab 02/24/21 05:11 Ordered PSA SCREEN [CHEM] Stat Lab 02/23/21 08:30 Received Dextrose 5%-Lactated Ringers 1,000 ml Med 02/23/21 08:45 Active IV ASDIRECTED Heparin Sodium Med 02/23/21 13:30 Ordered 5,000 units SUBCUT Q8H Morphine Med 02/23/21 13:18 Ordered 2 mg IVPUSH Q2H PRN Nicotine [Habitrol] Med 02/24/21 09:00 Ordered 14 mg TRDERM DAILY Ondansetron [Zofran ODT] Med 02/23/21 13:18 Ordered 4 mg PO Q4H PRN Sodium Chloride 0.9% @ 125 MLS/HR (1000ml) Med 02/23/21 13:30 Ordered Sodium Chloride 0.9% [Normal Saline] 1,000 ml IV ASDIRECTED VTE Mechanical Contraindications [AST] Per Unit Routine Oth 02/23/21 13:18 Ordered Resuscitation Status Routine Resus Stat 02/23/21 13:18 Ordered Medication Orders Dextrose/Lactated Ringer's (Dextrose 5%-Lactated Ringers) 1,000 mls @ 125 mls/hr IV ASDIRECTED [facility] Last Admin: 02/23/21 08:53 Dose: 125 mls/hr Documented by: RENAE Assessment/Plan Comment:: The patient is a 65-year-old gentleman who has been admitted to acute hospitalization as an inpatient from the emergency department. This is due to stroke that occurred approximately 2 days ago. The patient will require permissive hypertension to keep his blood pressure between 150 and 170 systolic millimeters of mercury. Medications will be added as needed for hypertension. The patient is also NPO currently until swallow eval from speech therapy that has been ordered. The patient is on IV normal saline at 125 mL/h. The patient also has bilateral pedal edema and this is a concern for cardiac issues that may have contributed to his stroke and a 2D echocardiogram has been ordered. The patient does have elevation of his B natruretic peptide at 3000 and this can likely represent hypertensive heart failure. Will monitor the patient's fluid status closely. The patient has dense spastic left-sided hemiparesis and PT OT has also been ordered. The patient will likely require rehabilitation for possible improvement in his situation. The patient has been started on heparin for anticoagulation. The patient has been ordered to have nicotine patch however he says that he can stop chewing tobacco without problems. Upon discharge the patient will likely need to have dual antiplatelet therapy. He is also been started on a statin. Repeat laboratory studies have been ordered. The patient has said that he wants to be resuscitated in spite of having advanced directives recommending DNR/DNI. The patient will be kept in full CODE STATUS for now. - Mortality Measure Prognosis:: Poor
[2021-02-23] MEDS: Heparin Sodium 5,000 Units/ML Vial SUBCUT SCH ×2 (16:58→21:24)
[2021-02-23] MEDS: Sodium Chloride 0.9% 1,000 ML IV SCH (17:00)
[2021-02-23] MEDS: atorvaSTATin 40 MG Tab PO SCH (21:24)
[2021-02-24] MEDS: Sodium Chloride 0.9% 1,000 ML IV SCH ×3 (03:10→19:43)
[2021-02-24] MEDS: Heparin Sodium 5,000 Units/ML Vial SUBCUT SCH ×3 (05:23→21:47)
--- NOTE | 2021-02-24 07:12 | PCM.PN ---
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 Subjective Update: The patient is a 65-year-old gentleman who had been admitted to acute hospitalization on February 23, 2021 due to right parietal stroke. The patient and the patient's had reported that this stroke it happened 48 hours at least prior to presentation. The patient has left-sided spastic hemiparesis. He is confused today. He is not oriented to person or time. Functional Status: Reports: Pain Controlled. Denies: Tolerating Diet (Patient this morning was n.p.o. has had swallow study) - Review of Systems General: Reports: Weakness HEENT: Reports: No Symptoms Pulmonary: Reports: No Symptoms Cardiovascular: Reports: No Symptoms Gastrointestinal: Reports: No Symptoms Genitourinary: Reports: No Symptoms Musculoskeletal: Reports: No Symptoms Skin: Reports: No Symptoms Neurological: Reports: No Symptoms Psychiatric: Reports: No Symptoms Systems Review Comment:: The patient's review of systems is somewhat unreliable as he is confused and disoriented today. - Patient Data Vitals - Most Recent: Last Vital Signs Temp 36.5 C 02/24/21 05:32 Pulse 89 02/24/21 05:32 Resp 20 02/24/21 05:32 BP 171/96 H 02/24/21 05:32 Pulse Ox 96 02/24/21 05:32 Weight - Most Recent: 65.136 kg I&O - Last 24 Hours: Intake & Output 02/23/21 02/24/21 02/24/21 22:59 06:59 14:59 Intake Total 1466 Balance 1466 Lab Results Last 24 Hours: Laboratory Results - last 24 hr 02/23/21 02/23/21 02/23/21 Range/Units 08:30 08:30 08:30 WBC 8.99 (4.23-9.07) K/mm3 RBC 4.54 L (4.63-6.08) M/mm3 Hgb 14.2 (13.7-17.5) gm/dl Hct 41.9 (40.1-51.0) % MCV 92.3 H (79.0-92.2) fl MCH 31.3 (25.7-32.2) pg MCHC 33.9 (32.2-35.5) g/dl RDW Std Deviation 46.0 H (35.1-43.9) fL Plt Count 180 (163-337) K/mm3 MPV 10.3 (9.4-12.3) fl Neut % (Auto) 74.2 H (34.0-67.9) % Lymph % (Auto) 17.0 L (21.8-53.1) % [place] % (Auto) 8.0 (5.3-12.2) % Eos % (Auto) 0.4 L (0.8-7.0) Baso % (Auto) 0.3 (0.1-1.2) % Neut # (Auto) 6.66 H (1.78-5.38) K/mm3 Lymph # (Auto) 1.53 (1.32-3.57) K/mm3 [place] # (Auto) 0.72 (0.30-0.82) K/mm3 Eos # (Auto) 0.04 (0.04-0.54) K/mm3 Baso # (Auto) 0.03 (0.01-0.08) K/mm3 PT 11.9 (9.7-12.0) SECONDS INR 1.11 APTT 26.7 (21.7-31.4) SECONDS Sodium 139 (136-145) mEq/L Potassium 3.6 (3.5-5.1) mEq/L Chloride 101 (98-107) mEq/L Carbon Dioxide 29 (21-32) mEq/L Anion Gap 12.6 (5-15) BUN 16 (7-18) mg/dL Creatinine 0.8 (0.7-1.3) mg/dL Est Cr Clr Drug Dosing 80.48 mL/min Estimated GFR (MDRD) > 60 (>60) mL/min BUN/Creatinine Ratio 20.0 H (14-18) Glucose 104 H (70-99) mg/dL Lactic Acid (0.4-2.0) mmol/L Calcium 9.1 (8.5-10.1) mg/dL Magnesium 1.8 (1.8-2.4) mg/dL Total Bilirubin 1.1 H (0.2-1.0) mg/dL GGT (15-85) U/L AST 17 (15-37) U/L ALT 14 L (16-63) U/L Alkaline Phosphatase 69 (46-116) U/L CK-MB (CK-2) 0.8 (0-3.6) ng/ml Troponin I < 0.017 (0.00-0.056) ng/mL C-Reactive Protein 1.3 H* (<1.0) mg/dL NT-Pro-B Natriuret Pep (0-125) pg/mL Total Protein 7.8 (6.4-8.2) g/dl Albumin 3.8 (3.4-5.0) g/dl Globulin 4.0 gm/dL Albumin/Globulin Ratio 1.0 (1-2) PSA Screen (0.0-4.0) ng/mL Urine Color (Yellow) Urine Appearance (Clear) Urine pH (5.0-8.0) Ur Specific [place] (1.005-1.030) Urine Protein (Negative) Urine Glucose (UA) (Negative) Urine Ketones (Negative) Urine Occult Blood (Negative) Urine Nitrite (Negative) Urine Bilirubin (Negative) Urine Urobilinogen (0.2-1.0) Ur Leukocyte Esterase (Negative) U Hyaline Cast (Auto) (0-5) /lpf Urine RBC (0-5) /hpf Urine WBC (0-5) /hpf Urine WBC Clumps (NOT SEEN) /hpf Ur Epithelial Cells (0-5) /hpf Amorphous Sediment (NOT SEEN) /hpf Urine Bacteria (FEW) /hpf Urine Mucus (FEW) /hpf Ethyl Alcohol (0.00) gm% SARS-CoV-2 RNA (GAVIN) (NEGATIVE) 02/23/21 02/23/21 02/23/21 Range/Units 08:30 08:30 08:30 WBC (4.23-9.07) K/mm3 RBC (4.63-6.08) M/mm3 Hgb (13.7-17.5) gm/dl Hct (40.1-51.0) % MCV (79.0-92.2) fl MCH (25.7-32.2) pg MCHC (32.2-35.5) g/dl RDW Std Deviation (35.1-43.9) fL Plt Count (163-337) K/mm3 MPV (9.4-12.3) fl Neut % (Auto) (34.0-67.9) % Lymph % (Auto) (21.8-53.1) % [place] % (Auto) (5.3-12.2) % Eos % (Auto) (0.8-7.0) Baso % (Auto) (0.1-1.2) % Neut # (Auto) (1.78-5.38) K/mm3 Lymph # (Auto) (1.32-3.57) K/mm3 [place] # (Auto) (0.30-0.82) K/mm3 Eos # (Auto) (0.04-0.54) K/mm3 Baso # (Auto) (0.01-0.08) K/mm3 PT (9.7-12.0) SECONDS INR APTT (21.7-31.4) SECONDS Sodium (136-145) mEq/L Potassium (3.5-5.1) mEq/L Chloride (98-107) mEq/L Carbon Dioxide (21-32) mEq/L Anion Gap (5-15) BUN (7-18) mg/dL Creatinine (0.7-1.3) mg/dL Est Cr Clr Drug Dosing mL/min Estimated GFR (MDRD) (>60) mL/min BUN/Creatinine Ratio (14-18) Glucose (70-99) mg/dL Lactic Acid 1.1 (0.4-2.0) mmol/L Calcium (8.5-10.1) mg/dL Magnesium (1.8-2.4) mg/dL Total Bilirubin (0.2-1.0) mg/dL GGT (15-85) U/L AST (15-37) U/L ALT (16-63) U/L Alkaline Phosphatase (46-116) U/L CK-MB (CK-2) (0-3.6) ng/ml Troponin I (0.00-0.056) ng/mL C-Reactive Protein (<1.0) mg/dL NT-Pro-B Natriuret Pep 3090 H (0-125) pg/mL Total Protein (6.4-8.2) g/dl Albumin (3.4-5.0) g/dl Globulin gm/dL Albumin/Globulin Ratio (1-2) PSA Screen (0.0-4.0) ng/mL Urine Color (Yellow) Urine Appearance (Clear) Urine pH (5.0-8.0) Ur Specific [place] (1.005-1.030) Urine Protein (Negative) Urine Glucose (UA) (Negative) Urine Ketones (Negative) Urine Occult Blood (Negative) Urine Nitrite (Negative) Urine Bilirubin (Negative) Urine Urobilinogen (0.2-1.0) Ur Leukocyte Esterase (Negative) U Hyaline Cast (Auto) (0-5) /lpf Urine RBC (0-5) /hpf Urine WBC (0-5) /hpf Urine WBC Clumps (NOT SEEN) /hpf Ur Epithelial Cells (0-5) /hpf Amorphous Sediment (NOT SEEN) /hpf Urine Bacteria (FEW) /hpf Urine Mucus (FEW) /hpf Ethyl Alcohol (0.00) gm% SARS-CoV-2 RNA (GAVIN) Negative (NEGATIVE) 02/23/21 02/23/21 02/23/21 Range/Units 08:30 08:30 08:31 WBC (4.23-9.07) K/mm3 RBC (4.63-6.08) M/mm3 Hgb (13.7-17.5) gm/dl Hct (40.1-51.0) % MCV (79.0-92.2) fl MCH (25.7-32.2) pg MCHC (32.2-35.5) g/dl RDW Std Deviation (35.1-43.9) fL Plt Count (163-337) K/mm3 MPV (9.4-12.3) fl Neut % (Auto) (34.0-67.9) % Lymph % (Auto) (21.8-53.1) % [place] % (Auto) (5.3-12.2) % Eos % (Auto) (0.8-7.0) Baso % (Auto) (0.1-1.2) % Neut # (Auto) (1.78-5.38) K/mm3 Lymph # (Auto) (1.32-3.57) K/mm3 [place] # (Auto) (0.30-0.82) K/mm3 Eos # (Auto) (0.04-0.54) K/mm3 Baso # (Auto) (0.01-0.08) K/mm3 PT (9.7-12.0) SECONDS INR APTT (21.7-31.4) SECONDS Sodium (136-145) mEq/L Potassium (3.5-5.1) mEq/L Chloride (98-107) mEq/L Carbon Dioxide (21-32) mEq/L Anion Gap (5-15) BUN (7-18) mg/dL Creatinine (0.7-1.3) mg/dL Est Cr Clr Drug Dosing mL/min Estimated GFR (MDRD) (>60) mL/min BUN/Creatinine Ratio (14-18) Glucose (70-99) mg/dL Lactic Acid (0.4-2.0) mmol/L Calcium (8.5-10.1) mg/dL Magnesium (1.8-2.4) mg/dL Total Bilirubin (0.2-1.0) mg/dL GGT 26 (15-85) U/L AST (15-37) U/L ALT (16-63) U/L Alkaline Phosphatase (46-116) U/L CK-MB (CK-2) (0-3.6) ng/ml Troponin I (0.00-0.056) ng/mL C-Reactive Protein (<1.0) mg/dL NT-Pro-B Natriuret Pep (0-125) pg/mL Total Protein (6.4-8.2) g/dl Albumin (3.4-5.0) g/dl Globulin gm/dL Albumin/Globulin Ratio (1-2) PSA Screen 0.3 (0.0-4.0) ng/mL Urine Color Yellow (Yellow) Urine Appearance Clear (Clear) Urine pH 7.0 (5.0-8.0) Ur Specific [place] 1.020 (1.005-1.030) Urine Protein Negative (Negative) Urine Glucose (UA) Negative (Negative) Urine Ketones Negative (Negative) Urine Occult Blood 1+ H (Negative) Urine Nitrite Negative (Negative) Urine Bilirubin Negative (Negative) Urine Urobilinogen 1.0 (0.2-1.0) Ur Leukocyte Esterase 3+ H (Negative) U Hyaline Cast (Auto) 0-5 (0-5) /lpf Urine RBC 10-20 H (0-5) /hpf Urine WBC 50-75 H (0-5) /hpf Urine WBC Clumps Few (NOT SEEN) /hpf Ur Epithelial Cells Not seen (0-5) /hpf Amorphous Sediment Many H (NOT SEEN) /hpf Urine Bacteria Many H (FEW) /hpf Urine Mucus Not seen (FEW) /hpf Ethyl Alcohol 0.00 (0.00) gm% SARS-CoV-2 RNA (GAVIN) (NEGATIVE) 02/24/21 Range/Units 06:25 WBC 6.82 (4.23-9.07) K/mm3 RBC 4.11 L (4.63-6.08) M/mm3 Hgb 12.9 L (13.7-17.5) gm/dl Hct 38.2 L (40.1-51.0) % MCV 92.9 H (79.0-92.2) fl MCH 31.4 (25.7-32.2) pg MCHC 33.8 (32.2-35.5) g/dl RDW Std Deviation 45.7 H (35.1-43.9) fL Plt Count 157 L (163-337) K/mm3 MPV 10.2 (9.4-12.3) fl Neut % (Auto) 63.2 (34.0-67.9) % Lymph % (Auto) 25.1 (21.8-53.1) % [place] % (Auto) 10.4 (5.3-12.2) % Eos % (Auto) 0.7 L (0.8-7.0) Baso % (Auto) 0.3 (0.1-1.2) % Neut # (Auto) 4.31 (1.78-5.38) K/mm3 Lymph # (Auto) 1.71 (1.32-3.57) K/mm3 [place] # (Auto) 0.71 (0.30-0.82) K/mm3 Eos # (Auto) 0.05 (0.04-0.54) K/mm3 Baso # (Auto) 0.02 (0.01-0.08) K/mm3 PT (9.7-12.0) SECONDS INR APTT (21.7-31.4) SECONDS Sodium (136-145) mEq/L Potassium (3.5-5.1) mEq/L Chloride (98-107) mEq/L Carbon Dioxide (21-32) mEq/L Anion Gap (5-15) BUN (7-18) mg/dL Creatinine (0.7-1.3) mg/dL Est Cr Clr Drug Dosing mL/min Estimated GFR (MDRD) (>60) mL/min BUN/Creatinine Ratio (14-18) Glucose (70-99) mg/dL Lactic Acid (0.4-2.0) mmol/L Calcium (8.5-10.1) mg/dL Magnesium (1.8-2.4) mg/dL Total Bilirubin (0.2-1.0) mg/dL GGT (15-85) U/L AST (15-37) U/L ALT (16-63) U/L Alkaline Phosphatase (46-116) U/L CK-MB (CK-2) (0-3.6) ng/ml Troponin I (0.00-0.056) ng/mL C-Reactive Protein (<1.0) mg/dL NT-Pro-B Natriuret Pep (0-125) pg/mL Total Protein (6.4-8.2) g/dl Albumin (3.4-5.0) g/dl Globulin gm/dL Albumin/Globulin Ratio (1-2) PSA Screen (0.0-4.0) ng/mL Urine Color (Yellow) Urine Appearance (Clear) Urine pH (5.0-8.0) Ur Specific [place] (1.005-1.030) Urine Protein (Negative) Urine Glucose (UA) (Negative) Urine Ketones (Negative) Urine Occult Blood (Negative) Urine Nitrite (Negative) Urine Bilirubin (Negative) Urine Urobilinogen (0.2-1.0) Ur Leukocyte Esterase (Negative) U Hyaline Cast (Auto) (0-5) /lpf Urine RBC (0-5) /hpf Urine WBC (0-5) /hpf Urine WBC Clumps (NOT SEEN) /hpf Ur Epithelial Cells (0-5) /hpf Amorphous Sediment (NOT SEEN) /hpf Urine Bacteria (FEW) /hpf Urine Mucus (FEW) /hpf Ethyl Alcohol (0.00) gm% SARS-CoV-2 RNA (GAVIN) (NEGATIVE) Med Orders - Current: Current Medications Atorvastatin Calcium (Atorvastatin 40 Mg Tab) 40 mg PO BEDTIME CLAUDIO Last Admin: 02/23/21 21:24 Dose: Not Given Documented by: Enalaprilat (Enalaprilat 1.25 Mg/Ml Sdv) 1.25 mg IVPUSH Q6H PRN PRN Reason: Hypertension Heparin Sodium (Porcine) (Heparin Sodium 5,000 Units/Ml Vial) 5,000 units SUBCUT Q8H [facility] Last Admin: 02/24/21 05:23 Dose: 5,000 units Documented by: Sodium Chloride (Normal Saline) 1,000 mls @ 125 mls/hr IV ASDIRECTED [facility] Last Admin: 02/24/21 03:10 Dose: 125 mls/hr Documented by: Miscellaneous Information (Remove Nicotine Patch) 1 ea TRDERM DAILY [facility] Morphine Sulfate (Morphine 2 Mg/Ml Syringe) 2 mg IVPUSH Q2H PRN PRN Reason: Pain (severe 7-10) Stop: 02/24/21 13:20 Nicotine (Nicotine 14 Mg/24 Hr Patch) 14 mg TRDERM DAILY [facility] Ondansetron HCl (Ondansetron 4 Mg Tab.Dis) 4 mg PO Q4H PRN PRN Reason: nausea, able to take PO Discontinued Medications Amlodipine Besylate (Amlodipine 10 Mg Tab) 10 mg PO ONETIME ONE Stop: 02/23/21 12:13 Last Admin: 02/23/21 12:22 Dose: 10 mg Documented by: Enalaprilat (Enalaprilat 1.25 Mg/Ml Sdv) 1.25 mg IVPUSH ONETIME ONE Stop: 02/23/21 12:14 Last Admin: 02/23/21 12:32 Dose: 1.25 mg Documented by: Dextrose/Lactated Ringer's (Dextrose 5%-Lactated Ringers) 1,000 mls @ 125 mls/hr IV ASDIRECTED [facility] Last Admin: 02/23/21 08:53 Dose: 125 mls/hr Documented by: Ceftriaxone Sodium 2 gm/ (Sodium Chloride) 100 mls @ 200 mls/hr IV ONETIME ONE Stop: 02/23/21 12:49 Last Admin: 02/23/21 12:39 Dose: 200 mls/hr Documented by: Labetalol HCl (Labetalol 100 Mg/20 Ml Mdv) 20 mg IVPUSH ONETIME ONE; Protocol Stop: 02/23/21 12:13 Last Admin: 02/23/21 12:25 Dose: 20 mg Documented by: Lorazepam (Lorazepam 2 Mg/Ml Sdv) 1 mg IVPUSH ONETIME ONE Stop: 02/23/21 09:45 Last Admin: 02/23/21 09:59 Dose: 1 mg Documented by: - Exam Quality Assessment: DVT Prophylaxis. No: Supplemental Oxygen General: Alert, Cooperative. No: Oriented HEENT: Pupils Equal, Pupils Reactive, EOMI, Mucous Membr. Moist/[place] Neck: Supple, Trachea Midline Lungs: Clear to Auscultation, Normal Respiratory Effort Cardiovascular: Regular Rate, Regular Rhythm GI/Abdominal Exam: Normal Bowel Sounds, Soft, Non-Tender, No Distention (Male) Exam: Deferred Back Exam: No: Normal Inspection (Unable to set up due to spastic hemiparesis) Extremities: No Pedal Edema. No: Normal Inspection (Left leg not functional), Normal Range of Motion Skin: Warm, Dry, Intact Neurological: No New Focal Deficit, Other (Left-sided facial droop). No: Normal Speech (Slurred speech) Psy/Mental Status: Alert - Patient Data Lab Results Last 24 hrs: Laboratory Results - last 24 hr 02/23/21 02/23/21 02/23/21 Range/Units 08:30 08:30 08:30 WBC 8.99 (4.23-9.07) K/mm3 RBC 4.54 L (4.63-6.08) M/mm3 Hgb 14.2 (13.7-17.5) gm/dl Hct 41.9 (40.1-51.0) % MCV 92.3 H (79.0-92.2) fl MCH 31.3 (25.7-32.2) pg MCHC 33.9 (32.2-35.5) g/dl RDW Std Deviation 46.0 H (35.1-43.9) fL Plt Count 180 (163-337) K/mm3 MPV 10.3 (9.4-12.3) fl Neut % (Auto) 74.2 H (34.0-67.9) % Lymph % (Auto) 17.0 L (21.8-53.1) % [place] % (Auto) 8.0 (5.3-12.2) % Eos % (Auto) 0.4 L (0.8-7.0) Baso % (Auto) 0.3 (0.1-1.2) % Neut # (Auto) 6.66 H (1.78-5.38) K/mm3 Lymph # (Auto) 1.53 (1.32-3.57) K/mm3 [place] # (Auto) 0.72 (0.30-0.82) K/mm3 Eos # (Auto) 0.04 (0.04-0.54) K/mm3 Baso # (Auto) 0.03 (0.01-0.08) K/mm3 PT 11.9 (9.7-12.0) SECONDS INR 1.11 APTT 26.7 (21.7-31.4) SECONDS Sodium 139 (136-145) mEq/L Potassium 3.6 (3.5-5.1) mEq/L Chloride 101 (98-107) mEq/L Carbon Dioxide 29 (21-32) mEq/L Anion Gap 12.6 (5-15) BUN 16 (7-18) mg/dL Creatinine 0.8 (0.7-1.3) mg/dL Est Cr Clr Drug Dosing 80.48 mL/min Estimated GFR (MDRD) > 60 (>60) mL/min BUN/Creatinine Ratio 20.0 H (14-18) Glucose 104 H (70-99) mg/dL Lactic Acid (0.4-2.0) mmol/L Calcium 9.1 (8.5-10.1) mg/dL Magnesium 1.8 (1.8-2.4) mg/dL Total Bilirubin 1.1 H (0.2-1.0) mg/dL GGT (15-85) U/L AST 17 (15-37) U/L ALT 14 L (16-63) U/L Alkaline Phosphatase 69 (46-116) U/L CK-MB (CK-2) 0.8 (0-3.6) ng/ml Troponin I < 0.017 (0.00-0.056) ng/mL C-Reactive Protein 1.3 H* (<1.0) mg/dL NT-Pro-B Natriuret Pep (0-125) pg/mL Total Protein 7.8 (6.4-8.2) g/dl Albumin 3.8 (3.4-5.0) g/dl Globulin 4.0 gm/dL Albumin/Globulin Ratio 1.0 (1-2) PSA Screen (0.0-4.0) ng/mL Urine Color (Yellow) Urine Appearance (Clear) Urine pH (5.0-8.0) Ur Specific [place] (1.005-1.030) Urine Protein (Negative) Urine Glucose (UA) (Negative) Urine Ketones (Negative) Urine Occult Blood (Negative) Urine Nitrite (Negative) Urine Bilirubin (Negative) Urine Urobilinogen (0.2-1.0) Ur Leukocyte Esterase (Negative) U Hyaline Cast (Auto) (0-5) /lpf Urine RBC (0-5) /hpf Urine WBC (0-5) /hpf Urine WBC Clumps (NOT SEEN) /hpf Ur Epithelial Cells (0-5) /hpf Amorphous Sediment (NOT SEEN) /hpf Urine Bacteria (FEW) /hpf Urine Mucus (FEW) /hpf Ethyl Alcohol (0.00) gm% SARS-CoV-2 RNA (GAVIN) (NEGATIVE) 02/23/21 02/23/21 02/23/21 Range/Units 08:30 08:30 08:30 WBC (4.23-9.07) K/mm3 RBC (4.63-6.08) M/mm3 Hgb (13.7-17.5) gm/dl Hct (40.1-51.0) % MCV (79.0-92.2) fl MCH (25.7-32.2) pg MCHC (32.2-35.5) g/dl RDW Std Deviation (35.1-43.9) fL Plt Count (163-337) K/mm3 MPV (9.4-12.3) fl Neut % (Auto) (34.0-67.9) % Lymph % (Auto) (21.8-53.1) % [place] % (Auto) (5.3-12.2) % Eos % (Auto) (0.8-7.0) Baso % (Auto) (0.1-1.2) % Neut # (Auto) (1.78-5.38) K/mm3 Lymph # (Auto) (1.32-3.57) K/mm3 [place] # (Auto) (0.30-0.82) K/mm3 Eos # (Auto) (0.04-0.54) K/mm3 Baso # (Auto) (0.01-0.08) K/mm3 PT (9.7-12.0) SECONDS INR APTT (21.7-31.4) SECONDS Sodium (136-145) mEq/L Potassium (3.5-5.1) mEq/L Chloride (98-107) mEq/L Carbon Dioxide (21-32) mEq/L Anion Gap (5-15) BUN (7-18) mg/dL Creatinine (0.7-1.3) mg/dL Est Cr Clr Drug Dosing mL/min Estimated GFR (MDRD) (>60) mL/min BUN/Creatinine Ratio (14-18) Glucose (70-99) mg/dL Lactic Acid 1.1 (0.4-2.0) mmol/L Calcium (8.5-10.1) mg/dL Magnesium (1.8-2.4) mg/dL Total Bilirubin (0.2-1.0) mg/dL GGT (15-85) U/L AST (15-37) U/L ALT (16-63) U/L Alkaline Phosphatase (46-116) U/L CK-MB (CK-2) (0-3.6) ng/ml Troponin I (0.00-0.056) ng/mL C-Reactive Protein (<1.0) mg/dL NT-Pro-B Natriuret Pep 3090 H (0-125) pg/mL Total Protein (6.4-8.2) g/dl Albumin (3.4-5.0) g/dl Globulin gm/dL Albumin/Globulin Ratio (1-2) PSA Screen (0.0-4.0) ng/mL Urine Color (Yellow) Urine Appearance (Clear) Urine pH (5.0-8.0) Ur Specific [place] (1.005-1.030) Urine Protein (Negative) Urine Glucose (UA) (Negative) Urine Ketones (Negative) Urine Occult Blood (Negative) Urine Nitrite (Negative) Urine Bilirubin (Negative) Urine Urobilinogen (0.2-1.0) Ur Leukocyte Esterase (Negative) U Hyaline Cast (Auto) (0-5) /lpf Urine RBC (0-5) /hpf Urine WBC (0-5) /hpf Urine WBC Clumps (NOT SEEN) /hpf Ur Epithelial Cells (0-5) /hpf Amorphous Sediment (NOT SEEN) /hpf Urine Bacteria (FEW) /hpf Urine Mucus (FEW) /hpf Ethyl Alcohol (0.00) gm% SARS-CoV-2 RNA (GAVIN) Negative (NEGATIVE) 02/23/21 02/23/21 02/23/21 Range/Units 08:30 08:30 08:31 WBC (4.23-9.07) K/mm3 RBC (4.63-6.08) M/mm3 Hgb (13.7-17.5) gm/dl Hct (40.1-51.0) % MCV (79.0-92.2) fl MCH (25.7-32.2) pg MCHC (32.2-35.5) g/dl RDW Std Deviation (35.1-43.9) fL Plt Count (163-337) K/mm3 MPV (9.4-12.3) fl Neut % (Auto) (34.0-67.9) % Lymph % (Auto) (21.8-53.1) % [place] % (Auto) (5.3-12.2) % Eos % (Auto) (0.8-7.0) Baso % (Auto) (0.1-1.2) % Neut # (Auto) (1.78-5.38) K/mm3 Lymph # (Auto) (1.32-3.57) K/mm3 [place] # (Auto) (0.30-0.82) K/mm3 Eos # (Auto) (0.04-0.54) K/mm3 Baso # (Auto) (0.01-0.08) K/mm3 PT (9.7-12.0) SECONDS INR APTT (21.7-31.4) SECONDS Sodium (136-145) mEq/L Potassium (3.5-5.1) mEq/L Chloride (98-107) mEq/L Carbon Dioxide (21-32) mEq/L Anion Gap (5-15) BUN (7-18) mg/dL Creatinine (0.7-1.3) mg/dL Est Cr Clr Drug Dosing mL/min Estimated GFR (MDRD) (>60) mL/min BUN/Creatinine Ratio (14-18) Glucose (70-99) mg/dL Lactic Acid (0.4-2.0) mmol/L Calcium (8.5-10.1) mg/dL Magnesium (1.8-2.4) mg/dL Total Bilirubin (0.2-1.0) mg/dL GGT 26 (15-85) U/L AST (15-37) U/L ALT (16-63) U/L Alkaline Phosphatase (46-116) U/L CK-MB (CK-2) (0-3.6) ng/ml Troponin I (0.00-0.056) ng/mL C-Reactive Protein (<1.0) mg/dL NT-Pro-B Natriuret Pep (0-125) pg/mL Total Protein (6.4-8.2) g/dl Albumin (3.4-5.0) g/dl Globulin gm/dL Albumin/Globulin Ratio (1-2) PSA Screen 0.3 (0.0-4.0) ng/mL Urine Color Yellow (Yellow) Urine Appearance Clear (Clear) Urine pH 7.0 (5.0-8.0) Ur Specific [place] 1.020 (1.005-1.030) Urine Protein Negative (Negative) Urine Glucose (UA) Negative (Negative) Urine Ketones Negative (Negative) Urine Occult Blood 1+ H (Negative) Urine Nitrite Negative (Negative) Urine Bilirubin Negative (Negative) Urine Urobilinogen 1.0 (0.2-1.0) Ur Leukocyte Esterase 3+ H (Negative) U Hyaline Cast (Auto) 0-5 (0-5) /lpf Urine RBC 10-20 H (0-5) /hpf Urine WBC 50-75 H (0-5) /hpf Urine WBC Clumps Few (NOT SEEN) /hpf Ur Epithelial Cells Not seen (0-5) /hpf Amorphous Sediment Many H (NOT SEEN) /hpf Urine Bacteria Many H (FEW) /hpf Urine Mucus Not seen (FEW) /hpf Ethyl Alcohol 0.00 (0.00) gm% SARS-CoV-2 RNA (GAVIN) (NEGATIVE) 02/24/21 Range/Units 06:25 WBC 6.82 (4.23-9.07) K/mm3 RBC 4.11 L (4.63-6.08) M/mm3 Hgb 12.9 L (13.7-17.5) gm/dl Hct 38.2 L (40.1-51.0) % MCV 92.9 H (79.0-92.2) fl MCH 31.4 (25.7-32.2) pg MCHC 33.8 (32.2-35.5) g/dl RDW Std Deviation 45.7 H (35.1-43.9) fL Plt Count 157 L (163-337) K/mm3 MPV 10.2 (9.4-12.3) fl Neut % (Auto) 63.2 (34.0-67.9) % Lymph % (Auto) 25.1 (21.8-53.1) % [place] % (Auto) 10.4 (5.3-12.2) % Eos % (Auto) 0.7 L (0.8-7.0) Baso % (Auto) 0.3 (0.1-1.2) % Neut # (Auto) 4.31 (1.78-5.38) K/mm3 Lymph # (Auto) 1.71 (1.32-3.57) K/mm3 [place] # (Auto) 0.71 (0.30-0.82) K/mm3 Eos # (Auto) 0.05 (0.04-0.54) K/mm3 Baso # (Auto) 0.02 (0.01-0.08) K/mm3 PT (9.7-12.0) SECONDS INR APTT (21.7-31.4) SECONDS Sodium (136-145) mEq/L Potassium (3.5-5.1) mEq/L Chloride (98-107) mEq/L Carbon Dioxide (21-32) mEq/L Anion Gap (5-15) BUN (7-18) mg/dL Creatinine (0.7-1.3) mg/dL Est Cr Clr Drug Dosing mL/min Estimated GFR (MDRD) (>60) mL/min BUN/Creatinine Ratio (14-18) Glucose (70-99) mg/dL Lactic Acid (0.4-2.0) mmol/L Calcium (8.5-10.1) mg/dL Magnesium (1.8-2.4) mg/dL Total Bilirubin (0.2-1.0) mg/dL GGT (15-85) U/L AST (15-37) U/L ALT (16-63) U/L Alkaline Phosphatase (46-116) U/L CK-MB (CK-2) (0-3.6) ng/ml Troponin I (0.00-0.056) ng/mL C-Reactive Protein (<1.0) mg/dL NT-Pro-B Natriuret Pep (0-125) pg/mL Total Protein (6.4-8.2) g/dl Albumin (3.4-5.0) g/dl Globulin gm/dL Albumin/Globulin Ratio (1-2) PSA Screen (0.0-4.0) ng/mL Urine Color (Yellow) Urine Appearance (Clear) Urine pH (5.0-8.0) Ur Specific [place] (1.005-1.030) Urine Protein (Negative) Urine Glucose (UA) (Negative) Urine Ketones (Negative) Urine Occult Blood (Negative) Urine Nitrite (Negative) Urine Bilirubin (Negative) Urine Urobilinogen (0.2-1.0) Ur Leukocyte Esterase (Negative) U Hyaline Cast (Auto) (0-5) /lpf Urine RBC (0-5) /hpf Urine WBC (0-5) /hpf Urine WBC Clumps (NOT SEEN) /hpf Ur Epithelial Cells (0-5) /hpf Amorphous Sediment (NOT SEEN) /hpf Urine Bacteria (FEW) /hpf Urine Mucus (FEW) /hpf Ethyl Alcohol (0.00) gm% SARS-CoV-2 RNA (GAVIN) (NEGATIVE) Result Diagrams: 02/24/21 06:25 02/24/21 06:25 Sepsis Event Note - Evaluation Sepsis Screening Result: No Definite Risk - Focused Exam Vital Signs: Vital Signs Temp Pulse Resp BP Pulse Ox 02/24/21 05:32 36.5 C 89 20 171/96 H 96 02/23/21 21:29 36.6 C 91 18 164/84 H 94 L - Problem List & Annotations (1) Acute cerebrovascular accident (CVA) due to embolism of right middle cere bral artery SNOMED Code(s): 071544052760339650 Code(s): I63.411 - CEREB INFRC DUE TO EMBOLISM OF RIGHT MIDDLE CEREBRAL ARTERY Status: Acute Priority: High Current Visit: Yes (2) Hypertension SNOMED Code(s): 27355209 Code(s): I10 - ESSENTIAL (PRIMARY) HYPERTENSION Status: Acute Priority: High Current Visit: Yes Qualifiers: Hypertension type: primary hypertension Qualified Code(s): I10 - Essential (primary) hypertension Annotation/Comment:: The patient requires permissive hypertension with systolic blood pressure between 150 and 170 mmHg to assist with cerebral perfusion (3) Spastic hemiparesis of left nondominant side due to acute cerebral infarction SNOMED Code(s): 148995012, 006571326 Code(s): I63.9 - CEREBRAL INFARCTION, UNSPECIFIED; G81.14 - SPASTIC HEMIPLEGIA AFFECTING LEFT NONDOMINANT SIDE Status: Acute Priority: High Current Visit: Yes (4) Dysphagia due to recent cerebrovascular accident SNOMED Code(s): 62150017, 346286614 Code(s): I69.391 - DYSPHAGIA FOLLOWING CEREBRAL INFARCTION Status: Acute Priority: High Current Visit: Yes (5) Pedal edema SNOMED Code(s): 841904658 Code(s): R60.0 - LOCALIZED EDEMA Status: Acute Priority: High Current Visit: Yes (6) Tobacco use SNOMED Code(s): 881790986 Code(s): Z72.0 - TOBACCO USE Status: Chronic Priority: High Current Visit: Yes (7) Acute alteration in mental status SNOMED Code(s): 289008992, 478521013 Code(s): R41.82 - ALTERED MENTAL STATUS, UNSPECIFIED Status: Acute Priority: High Current Visit: Yes - Problem List Review Problem List Initiated/Reviewed/Updated: Yes - My Orders Last 24 Hours: My Active Orders 02/23/21 13:18 Bedrest Bedside Commode [RC] BID Oxygen Therapy [RC] PRN VTE/DVT Education [RC] DAILY Vital Signs [RC] Q4HR OT Evaluation and Treatment [CONS] Routine PT Evaluation and Treatment [CONS] Routine [employer]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 [CONS] Routine Morphine 2 mg IVPUSH Q2H PRN Ondansetron [Zofran ODT] 4 mg PO Q4H PRN VTE Mechanical Contraindications [AST] Per Unit Routine Resuscitation Status Routine 02/23/21 13:19 Cardiac Monitoring [RC] CONTINUOUS 02/23/21 13:30 Sodium Chloride 0.9% [Normal Saline] 1,000 ml IV ASDIRECTED 02/23/21 13:48 Enalaprilat [Vasotec IV] 1.25 mg IVPUSH Q6H PRN 02/23/21 14:00 Heparin Sodium 5,000 units SUBCUT Q8H 02/23/21 16:51 Communication Order [RC] DAILY 02/23/21 Dinner Nothing per Oral Now Diet [DIET] 02/23/21 21:00 atorvaSTATin [Lipitor] 40 mg PO BEDTIME 02/24/21 06:25 COMPREHENSIVE METABOLIC PN,CMP [CHEM] AM MAGNESIUM [CHEM] AM 02/24/21 09:00 Nicotine [Habitrol] 14 mg TRDERM DAILY 02/25/21 09:00 Remove Patch 1 ea TRDERM DAILY - Assessment Assessment:: The patient is a 65-year-old gentleman who had been admitted due to acute to subacute stroke of the right parietal area. The patient had swallow study completed and he has been placed on dysphagia diet with nectar thickened liquids. This diet has been ordered. The patient also has some alteration in his mental status and I believe this is acute and he should be reoriented frequently in order to help improve his mental status. Repeat laboratory studies have been ordered. PT OT will be continued for the patient. DVT prophylaxis will continue with the use of heparin. He also has nicotine patch for his previous tobacco use. 14 mg patch has been ordered daily. The patient will need to have long-term care and rehabilitation to regain some function of his left side. The patient will continue to be in the permissive hypertensive state in order to help cerebral perfusion through edema. The patient should be appropriate for discharge to rehabilitation facility in 1 to 2 days. - Plan Plan:: The patient is a 65-year-old gentleman who has been admitted to [facility] as an inpatient from the emergency department. This is due to stroke that occurred approximately 2 days ago. The patient will require permissive hypertension to keep his blood pressure between 150 and 170 systolic millimeters of mercury. Medications will be added as needed for hypertension. The patient is also NPO currently until swallow eval from speech therapy that has been ordered. The patient is on IV normal saline at 125 mL/h. The patient also has bilateral pedal edema and this is a concern for cardiac issues that may have contributed to his stroke and a 2D echocardiogram has been ordered. The patient does have elevation of his B natruretic peptide at 3000 and this can likely represent hypertensive heart failure. Will monitor the patient's fluid status closely. The patient has dense spastic left-sided hemiparesis and PT OT has also been ordered. The patient will likely require rehabilitation for possible improvement in his situation. The patient has been started on heparin for anticoagulation. The patient has been ordered to have nicotine patch however he says that he can stop chewing tobacco without problems. Upon discharge the patient will likely need to have dual antiplatelet therapy. He is also been started on a statin. Repeat laboratory studies have been ordered. The patient has said that he wants to be resuscitated in spite of having advanced directives recommending DNR/DNI. The patient will be kept in full CODE STATUS for now.
[2021-02-24] MEDS: Nicotine 14 MG/24 Hr Patch TRDERM SCH (11:07)
[2021-02-24] MEDS: Enalaprilat 1.25 MG/ML SDV IVPUSH PRN ×2 (11:41→19:58)
[2021-02-24] MEDS ORDERED: Labetalol 100 MG/20 ML MDV IVPUSH PRN (17:00)
[2021-02-24] MEDS: atorvaSTATin 40 MG Tab PO SCH (20:03)
[2021-02-25] MEDS: Enalaprilat 1.25 MG/ML SDV IVPUSH PRN (04:15)
[2021-02-25] MEDS: Sodium Chloride 0.9% 1,000 ML IV SCH ×2 (04:17→15:00)
[2021-02-25] MEDS: Heparin Sodium 5,000 Units/ML Vial SUBCUT SCH ×3 (06:18→22:23)
[2021-02-25] MEDS ORDERED: Magnesium Sulfate/Water 2 GM in Premix Bag 1 BAG IV ONE (06:58)
[2021-02-25] MEDS ORDERED: Potassium Bicarbonate/Cit Ac 10 MEQ Effervescent Tab PO ONE (06:58)
--- NOTE | 2021-02-25 07:35 | PCM.PN ---
- General Info Date of Service: 02/25/21 Admission Dx/Problem (Free Text): Admission Diagnosis/Problem Admission Diagnosis/Problem CVA, Cerebrovascular accident right parietal with dense spastic left-sided hemiparesis. Subjective Update: The patient is a 65-year-old gentleman who was admitted to acute hospitalization on February 23, 2021 due to stroke. The patient had symptoms of stroke that started approximately 48 hours prior to presentation. The patient does have dysphagia and he is currently on a dysphagia diet. The patient says that he does not know date or place but he is awake and more alert today. The patient denies any pain. He has been tolerating his diet. No other complaints today. He is currently awaiting placement. Functional Status: Reports: Pain Controlled, Tolerating Diet - Review of Systems General: Reports: No Symptoms HEENT: Reports: No Symptoms Pulmonary: Reports: No Symptoms Cardiovascular: Reports: No Symptoms Gastrointestinal: Reports: No Symptoms Genitourinary: Reports: No Symptoms Musculoskeletal: Reports: No Symptoms Skin: Reports: No Symptoms Neurological: Reports: No Symptoms Psychiatric: Reports: No Symptoms Systems Review Comment:: Patient confused. - Patient Data Vitals - Most Recent: Last Vital Signs Temp 36.6 C 02/25/21 04:10 Pulse 86 02/25/21 04:21 Resp 12 02/25/21 04:10 BP 158/86 H 02/25/21 04:21 Pulse Ox 98 02/25/21 04:21 Weight - Most Recent: 65.726 kg I&O - Last 24 Hours: Intake & Output 02/24/21 02/25/21 02/25/21 22:59 06:59 14:59 Intake Total 880 1979 Output Total 2 Balance 878 1979 Lab Results Last 24 Hours: Laboratory Results - last 24 hr 02/25/21 02/25/21 Range/Units 05:30 05:30 WBC 6.13 (4.23-9.07) K/mm3 RBC 4.28 L (4.63-6.08) M/mm3 Hgb 13.3 L (13.7-17.5) gm/dl Hct 39.4 L (40.1-51.0) % MCV 92.1 (79.0-92.2) fl MCH 31.1 (25.7-32.2) pg MCHC 33.8 (32.2-35.5) g/dl RDW Std Deviation 45.1 H (35.1-43.9) fL Plt Count 168 (163-337) K/mm3 MPV 10.6 (9.4-12.3) fl Neut % (Auto) 57.9 (34.0-67.9) % Lymph % (Auto) 28.1 (21.8-53.1) % [place] % (Auto) 11.4 (5.3-12.2) % Eos % (Auto) 1.6 (0.8-7.0) Baso % (Auto) 0.7 (0.1-1.2) % Neut # (Auto) 3.55 (1.78-5.38) K/mm3 Lymph # (Auto) 1.72 (1.32-3.57) K/mm3 [place] # (Auto) 0.70 (0.30-0.82) K/mm3 Eos # (Auto) 0.10 (0.04-0.54) K/mm3 Baso # (Auto) 0.04 (0.01-0.08) K/mm3 Sodium 138 (136-145) mEq/L Potassium 3.4 L (3.5-5.1) mEq/L Chloride 102 (98-107) mEq/L Carbon Dioxide 25 (21-32) mEq/L Anion Gap 14.4 (5-15) BUN 9 (7-18) mg/dL Creatinine 0.7 (0.7-1.3) mg/dL Est Cr Clr Drug Dosing 92.88 mL/min Estimated GFR (MDRD) > 60 (>60) mL/min BUN/Creatinine Ratio 12.9 L (14-18) Glucose 103 H (70-99) mg/dL Calcium 8.6 (8.5-10.1) mg/dL Magnesium 1.6 L (1.8-2.4) mg/dL Luc Results Last 24 Hours: Microbiology 02/23/21 09:35 Urine Culture - Final Urine Med Orders - Current: Current Medications Atorvastatin Calcium (Atorvastatin 40 Mg Tab) 40 mg PO BEDTIME [facility] Last Admin: 02/24/21 20:03 Dose: 40 mg Documented by: Heparin Sodium (Porcine) (Heparin Sodium 5,000 Units/Ml Vial) 5,000 units SUBCUT Q8H [facility] Last Admin: 02/25/21 06:18 Dose: 5,000 units Documented by: Sodium Chloride (Normal Saline) 1,000 mls @ 125 mls/hr IV ASDIRECTED [facility] Last Admin: 02/25/21 04:17 Dose: 125 mls/hr Documented by: Magnesium Sulfate 2 gm/ Premix 50 mls @ 25 mls/hr IV ONETIME ONE Stop: 02/25/21 08:57 Lisinopril (Lisinopril 10 Mg Tab) 10 mg PO DAILY [facility] Metoprolol Succinate (Metoprolol Succinate 50 Mg Tab.Er) 50 mg PO DAILY [facility] Miscellaneous Information (Remove Nicotine Patch) 1 ea TRDERM DAILY [facility] Nicotine (Nicotine 14 Mg/24 Hr Patch) 14 mg TRDERM DAILY [facility] Last Admin: 02/24/21 11:07 Dose: Not Given Documented by: Ondansetron HCl (Ondansetron 4 Mg Tab.Dis) 4 mg PO Q4H PRN PRN Reason: nausea, able to take PO Discontinued Medications Amlodipine Besylate (Amlodipine 10 Mg Tab) 10 mg PO ONETIME ONE Stop: 02/23/21 12:13 Last Admin: 02/23/21 12:22 Dose: 10 mg Documented by: Enalaprilat (Enalaprilat 1.25 Mg/Ml Sdv) 1.25 mg IVPUSH ONETIME ONE Stop: 02/23/21 12:14 Last Admin: 02/23/21 12:32 Dose: 1.25 mg Documented by: Enalaprilat (Enalaprilat 1.25 Mg/Ml Sdv) 1.25 mg IVPUSH Q6H PRN PRN Reason: Hypertension Last Admin: 02/25/21 04:15 Dose: 1.25 mg Documented by: Dextrose/Lactated Ringer's (Dextrose 5%-Lactated Ringers) 1,000 mls @ 125 mls/hr IV ASDIRECTED [facility] Last Admin: 02/23/21 08:53 Dose: 125 mls/hr Documented by: Ceftriaxone Sodium 2 gm/ (Sodium Chloride) 100 mls @ 200 mls/hr IV ONETIME ONE Stop: 02/23/21 12:49 Last Admin: 02/23/21 12:39 Dose: 200 mls/hr Documented by: Labetalol HCl (Labetalol 100 Mg/20 Ml Mdv) 20 mg IVPUSH ONETIME ONE; Protocol Stop: 02/23/21 12:13 Last Admin: 02/23/21 12:25 Dose: 20 mg Documented by: Labetalol HCl (Labetalol 100 Mg/20 Ml Mdv) 5 mg IVPUSH Q4H PRN PRN Reason: Hypertension Last Admin: 02/24/21 18:19 Dose: 5 mg Documented by: Lorazepam (Lorazepam 2 Mg/Ml Sdv) 1 mg IVPUSH ONETIME ONE Stop: 02/23/21 09:45 Last Admin: 02/23/21 09:59 Dose: 1 mg Documented by: Morphine Sulfate (Morphine 2 Mg/Ml Syringe) 2 mg IVPUSH Q2H PRN PRN Reason: Pain (severe 7-10) Stop: 02/24/21 13:20 Potassium Bicarbonate (Potassium Bicarbonate/Cit Ac 10 Meq Effervescent Tab) 10 meq PO ONETIME ONE Stop: 02/25/21 06:59 - Exam Quality Assessment: Supplemental Oxygen, DVT Prophylaxis General: Alert, Cooperative. No: Oriented HEENT: Pupils Equal, Pupils Reactive, EOMI. No: Mucous Membr. Moist/[place] (Dry) Neck: Supple, Trachea Midline Lungs: Clear to Auscultation, Normal Respiratory Effort Cardiovascular: Regular Rate, Regular Rhythm GI/Abdominal Exam: Normal Bowel Sounds, Soft, No Distention (Male) Exam: Deferred Back Exam: No: Normal Inspection (Kyphosis), Full Range of Motion (Unable to sit up due to spastic hemiparesis) Extremities: No: Normal Inspection, Normal Range of Motion Skin: Warm, Dry, Intact Neurological: No New Focal Deficit, Other (Left-sided facial droop). No: Normal Gait, Normal Speech (Slurred speech), Strength Equal Bilateral (Left-sided spastic hemiparesis) Psy/Mental Status: Alert, Normal Affect - Patient Data Lab Results Last 24 hrs: Laboratory Results - last 24 hr 02/25/21 02/25/21 Range/Units 05:30 05:30 WBC 6.13 (4.23-9.07) K/mm3 RBC 4.28 L (4.63-6.08) M/mm3 Hgb 13.3 L (13.7-17.5) gm/dl Hct 39.4 L (40.1-51.0) % MCV 92.1 (79.0-92.2) fl MCH 31.1 (25.7-32.2) pg MCHC 33.8 (32.2-35.5) g/dl RDW Std Deviation 45.1 H (35.1-43.9) fL Plt Count 168 (163-337) K/mm3 MPV 10.6 (9.4-12.3) fl Neut % (Auto) 57.9 (34.0-67.9) % Lymph % (Auto) 28.1 (21.8-53.1) % [place] % (Auto) 11.4 (5.3-12.2) % Eos % (Auto) 1.6 (0.8-7.0) Baso % (Auto) 0.7 (0.1-1.2) % Neut # (Auto) 3.55 (1.78-5.38) K/mm3 Lymph # (Auto) 1.72 (1.32-3.57) K/mm3 [place] # (Auto) 0.70 (0.30-0.82) K/mm3 Eos # (Auto) 0.10 (0.04-0.54) K/mm3 Baso # (Auto) 0.04 (0.01-0.08) K/mm3 Sodium 138 (136-145) mEq/L Potassium 3.4 L (3.5-5.1) mEq/L Chloride 102 (98-107) mEq/L Carbon Dioxide 25 (21-32) mEq/L Anion Gap 14.4 (5-15) BUN 9 (7-18) mg/dL Creatinine 0.7 (0.7-1.3) mg/dL Est Cr Clr Drug Dosing 92.88 mL/min Estimated GFR (MDRD) > 60 (>60) mL/min BUN/Creatinine Ratio 12.9 L (14-18) Glucose 103 H (70-99) mg/dL Calcium 8.6 (8.5-10.1) mg/dL Magnesium 1.6 L (1.8-2.4) mg/dL Result Diagrams: 02/25/21 05:30 02/25/21 05:30 Luc Results Last 24 hrs: Microbiology 02/23/21 09:35 Urine Culture - Final Urine Sepsis Event Note - Evaluation Sepsis Screening Result: No Definite Risk - Focused Exam Vital Signs: Vital Signs Temp Pulse Resp BP BP Pulse Ox 02/25/21 04:21 86 158/86 H 98 02/25/21 04:15 174/97 H 02/25/21 04:10 36.6 C 86 12 174/97 H 98 02/24/21 20:04 80 154/81 H 98 02/24/21 19:58 171/86 H 02/24/21 19:38 36.7 C 81 14 171/86 H 97 - Problem List & Annotations (1) Acute cerebrovascular accident (CVA) due to embolism of right middle cerebral artery SNOMED Code(s): 567873181588341700 Code(s): I63.411 - CEREB INFRC DUE TO EMBOLISM OF RIGHT MIDDLE CEREBRAL ARTERY Status: Acute Priority: High Current Visit: Yes (2) Hypertension SNOMED Code(s): 01634292 Code(s): I10 - ESSENTIAL (PRIMARY) HYPERTENSION Status: Acute Priority: High Current Visit: Yes Qualifiers: Hypertension type: primary hypertension Qualified Code(s): I10 - Essential (primary) hypertension Annotation/Comment:: The patient requires permissive hypertension with systolic blood pressure between 150 and 170 mmHg to assist with cerebral perfusion (3) Spastic hemiparesis of left nondominant side due to acute cerebral infarction SNOMED Code(s): 170705219, 083759211 Code(s): I63.9 - CEREBRAL INFARCTION, UNSPECIFIED; G81.14 - SPASTIC HEMIPLEGIA AFFECTING LEFT NONDOMINANT SIDE Status: Acute Priority: High Current Visit: Yes (4) Dysphagia due to recent cerebrovascular accident SNOMED Code(s): 25198196, 914118403 Code(s): I69.391 - DYSPHAGIA FOLLOWING CEREBRAL INFARCTION Status: Acute Priority: High Current Visit: Yes (5) Pedal edema SNOMED Code(s): 120837520 Code(s): R60.0 - LOCALIZED EDEMA Status: Acute Priority: High Current Visit: Yes (6) Tobacco use SNOMED Code(s): 386372931 Code(s): Z72.0 - TOBACCO USE Status: Chronic Priority: High Current Visit: Yes (7) Acute alteration in mental status SNOMED Code(s): 442224852, 735015801 Code(s): R41.82 - ALTERED MENTAL STATUS, UNSPECIFIED Status: Acute Trudi ority: High Current Visit: Yes - Problem List Review Problem List Initiated/Reviewed/Updated: Yes - My Orders Last 24 Hours: My Active Orders 02/24/21 Breakfast Heart Healthy Diet [DIET] Thickened Liquids [DIET] 02/24/21 09:00 Nicotine [Habitrol] 14 mg TRDERM DAILY 02/25/21 06:58 Magnesium Sulfate/Water [Magnesium Sulfate in Water 2 GM/50 ML] 2 gm Premix Bag 1 bag IV ONETIME 02/25/21 09:00 Metoprolol Succinate [Toprol XL] 50 mg PO DAILY Remove Patch 1 ea TRDERM DAILY lisinopriL [Prinivil] 10 mg PO DAILY - Assessment Assessment:: The patient is a 65-year-old gentleman who had been admitted due to acute [facility] stroke of the right parietal area. The patient had swallow study completed and he has been placed on dysphagia diet with nectar thickened liquids. This diet has been ordered. The patient also has some alteration in his mental status and I believe this is acute and he should be reoriented f requently in order to help improve his mental status. Repeat laboratory studies have been ordered. PT OT will be continued for the patient. DVT prophylaxis will continue with the use of heparin. He also has nicotine patch for his previous tobacco use. 14 mg patch has been ordered daily. The patient will need to have long-term care and rehabilitation to regain some function of his left side. The patient will continue to be in the permissive hypertensive state in order to help cerebral perfusion through edema. The patient should be appropriate for discharge to rehabilitation facility in 1 to 2 days. 02/25/2021 The patient is a 65-year-old gentleman who is currently awaiting placement. This is due to his spastic left-sided hemiparesis from right-sided parietal stroke. He is currently tolerating his dysphagia diet with thickened liquids. The patient is still somewhat confused. Continue to reorient frequently. PT OT will continue. He also has a nicotine patch for his tobacco addiction withdrawal symptoms. The patient's blood pressure medications have been changed to oral and these will be adjusted as necessary to help improve the patient's blood pressure slowly. Repeat laboratory studies have been ordered for the morning. The patient should also be appropriate for discharge once rehab is available. - Plan Plan:: The patient is a 65-year-old gentleman who has been admitted to acute hospitalization as an inpatient from the emergency department. This is due to stroke that occurred approximately 2 days ago. The patient will require permissive hypertension to keep his blood pressure between 150 and 170 systolic millimeters of mercury. Medications will be added as needed for hypertension. The patient is also NPO currently until swallow eval from speech therapy that has been ordered. The patient is on IV normal saline at 125 mL/h. The patient also has bilateral pedal edema and this is a concern for cardiac issues that may have contributed to his stroke and a 2D echocardiogram has been ordered. The patient does have elevation of his B natruretic peptide at 3000 and this can likely represent hypertensive heart failure. Will monitor the patient's fluid status closely. The patient has dense spastic left-sided hemiparesis and PT OT has also been ordered. The patient will likely require rehabilitation for possible improvement in his situation. The patient has been started on heparin for anticoagulation. The patient has been ordered to have nicotine patch however he says that he can stop chewing tobacco without problems. Upon discharge the patient will likely need to have dual antiplatelet therapy. He is also been started on a statin. Repeat laboratory studies have been ordered. The patient has said that he wants to be resuscitated in spite of having advanced directives recommending DNR/DNI. The patient will be kept in full CODE STATUS for now.
[2021-02-25] MEDS: Lisinopril 10 MG Tab PO SCH ×2 (07:53→09:57)
[2021-02-25] MEDS: Metoprolol Succinate 50 MG Tab.ER PO SCH ×2 (07:57→09:56)
[2021-02-25] MEDS: Nicotine 14 MG/24 Hr Patch TRDERM SCH (07:59)
[2021-02-25] MEDS: cloNIDine 0.1 MG Tab PO PRN (15:46)
[2021-02-25] MEDS: atorvaSTATin 40 MG Tab PO SCH (22:24)
[2021-02-26] MEDS: Sodium Chloride 0.9% 1,000 ML IV SCH ×2 (04:43→18:22)
[2021-02-26] MEDS: Heparin Sodium 5,000 Units/ML Vial SUBCUT SCH ×3 (06:54→22:01)
--- NOTE | 2021-02-26 06:56 | PCM.PN ---
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 Subjective Update: The patient is a 65-year-old gentleman who was admitted due to a subacute stroke on February 23, 2021. The patient has dense left-sided spastic hemiparesis. The patient is not able to ambulate. He has been tolerating his dysphagia diet with thickened liquids and he has been started on oral medications for his hypertension. The patient is currently awaiting placement. Functional Status: Reports: Pain Controlled, Tolerating Diet - Review of Systems General: Reports: No Symptoms HEENT: Reports: No Symptoms Pulmonary: Reports: No Symptoms Cardiovascular: Reports: No Symptoms Gastrointestinal: Reports: No Symptoms Genitourinary: Reports: No Symptoms Musculoskeletal: Reports: No Symptoms Skin: Reports: No Symptoms Neurological: Reports: Pre-Existing Deficit, Difficulty Walking, Weakness Psychiatric: Reports: No Symptoms - Patient Data Vitals - Most Recent: Last Vital Signs Temp 36.8 C 02/26/21 03:29 Pulse 70 02/26/21 03:29 Resp 13 02/26/21 03:29 BP 128/95 H 02/26/21 03:29 Pulse Ox 96 02/26/21 03:29 Weight - Most Recent: 66.723 kg I&O - Last 24 Hours: Intake & Output 02/25/21 02/25/21 02/26/21 14:59 22:59 06:59 Intake Total 50 1427 1083 Balance 50 1427 1083 Lab Results Last 24 Hours: Laboratory Results - last 24 hr 02/26/21 Range/Units 05:38 Sodium 140 (136-145) mEq/L Potassium 3.2 L (3.5-5.1) mEq/L Chloride 105 (98-107) mEq/L Carbon Dioxide 26 (21-32) mEq/L Anion Gap 12.2 (5-15) BUN 13 (7-18) mg/dL Creatinine 0.7 (0.7-1.3) mg/dL Est Cr Clr Drug Dosing 92.88 mL/min Estimated GFR (MDRD) > 60 (>60) mL/min BUN/Creatinine Ratio 18.6 H (14-18) Glucose 89 (70-99) mg/dL Calcium 8.3 L (8.5-10.1) mg/dL Magnesium 1.8 (1.8-2.4) mg/dL Med Orders - Current: Current Medications Atorvastatin Calcium (Atorvastatin 40 Mg Tab) 40 mg PO BEDTIME [facility] Last Admin: 02/25/21 22:24 Dose: 40 mg Documented by: Clonidine HCl (Clonidine 0.1 Mg Tab) 0.2 mg PO Q8H PRN PRN Reason: Hypertension Last Admin: 02/25/21 15:46 Dose: 0.2 mg Documented by: Heparin Sodium (Porcine) (Heparin Sodium 5,000 Units/Ml Vial) 5,000 units SUBCUT Q8H [facility] Last Admin: 02/26/21 06:54 Dose: 5,000 units Documented by: Sodium Chloride (Normal Saline) 1,000 mls @ 75 mls/hr IV ASDIRECTED [facility] Last Admin: 02/26/21 04:43 Dose: 75 mls/hr Documented by: Lisinopril (Lisinopril 10 Mg Tab) 10 mg PO DAILY [facility] Last Admin: 02/25/21 09:57 Dose: Not Given Documented by: Metoprolol Succinate (Metoprolol Succinate 50 Mg Tab.Er) 50 mg PO DAILY [facility] Last Admin: 02/25/21 09:56 Dose: Not Given Documented by: Miscellaneous Information (Remove Nicotine Patch) 1 ea TRDERM DAILY [facility] Last Admin: 02/25/21 09:57 Dose: Not Given Documented by: Nicotine (Nicotine 14 Mg/24 Hr Patch) 14 mg TRDERM DAILY [facility] Last Admin: 02/25/21 07:59 Dose: Not Given Documented by: Ondansetron HCl (Ondansetron 4 Mg Tab.Dis) 4 mg PO Q4H PRN PRN Reason: nausea, able to take PO Discontinued Medications Amlodipine Besylate (Amlodipine 10 Mg Tab) 10 mg PO ONETIME ONE Stop: 02/23/21 12:13 Last Admin: 02/23/21 12:22 Dose: 10 mg Documented by: Enalaprilat (Enalaprilat 1.25 Mg/Ml Sdv) 1.25 mg IVPUSH ONETIME ONE Stop: 02/23/21 12:14 Last Admin: 02/23/21 12:32 Dose: 1.25 mg Documented by: Enalaprilat (Enalaprilat 1.25 Mg/Ml Sdv) 1.25 mg IVPUSH Q6H PRN PRN Reason: Hypertension Last Admin: 02/25/21 04:15 Dose: 1.25 mg Documented by: Dextrose/Lactated Ringer's (Dextrose 5%-Lactated Ringers) 1,000 mls @ 125 mls/hr IV ASDIRECTED [facility] Last Admin: 02/23/21 08:53 Dose: 125 mls/hr Documented by: Ceftriaxone Sodium 2 gm/ (Sodium Chloride) 100 mls @ 200 mls/hr IV ONETIME ONE Stop: 02/23/21 12:49 Last Admin: 02/23/21 12:39 Dose: 200 mls/hr Documented by: Sodium Chloride (Normal Saline) 1,000 mls @ 125 mls/hr IV ASDIRECTED [facility] Last Admin: 02/25/21 04:17 Dose: 125 mls/hr Documented by: Magnesium Sulfate 2 gm/ Premix 50 mls @ 25 mls/hr IV ONETIME ONE Stop: 02/25/21 08:57 Last Admin: 02/25/21 07:52 Dose: 25 mls/hr Documented by: Labetalol HCl (Labetalol 100 Mg/20 Ml Mdv) 20 mg IVPUSH ONETIME ONE; Protocol Stop: 02/23/21 12:13 Last Admin: 02/23/21 12:25 Dose: 20 mg Documented by: Labetalol HCl (Labetalol 100 Mg/20 Ml Mdv) 5 mg IVPUSH Q4H PRN PRN Reason: Hypertension Last Admin: 02/24/21 18:19 Dose: 5 mg Documented by: Lorazepam (Lorazepam 2 Mg/Ml Sdv) 1 mg IVPUSH ONETIME ONE Stop: 02/23/21 09:45 Last Admin: 02/23/21 09:59 Dose: 1 mg Documented by: Morphine Sulfate (Morphine 2 Mg/Ml Syringe) 2 mg IVPUSH Q2H PRN PRN Reason: Pain (severe 7-10) Stop: 02/24/21 13:20 Potassium Bicarbonate (Potassium Bicarbonate/Cit Ac 10 Meq Effervescent Tab) 10 meq PO ONETIME ONE Stop: 02/25/21 06:59 Last Admin: 02/25/21 07:52 Dose: 10 meq Documented by: - Exam Quality Assessment: DVT Prophylaxis. No: Supplemental Oxygen General: Alert, Oriented, Cooperative, No Acute Distress HEENT: Pupils Equal, Pupils Reactive, EOMI, Mucous Membr. Moist/Orin Neck: Supple, Trachea Midline Lungs: Clear to Auscultation, Normal Respiratory Effort Cardiovascular: Regular Rate, Regular Rhythm GI/Abdominal Exam: Normal Bowel Sounds, Soft, Non-Tender, No Distention (Male) Exam: Deferred Back Exam: No: Normal Inspection, Full Range of Motion (Patient unable to set up secondary to spastic hemiparesis.) Extremities: No: Normal Inspection (Left-sided hemiparesis) Skin: Warm, Dry, Intact Neurological: No New Focal Deficit. No: Normal Gait (Unable to walk), Normal Speech (Slurred speech), Cranial Nerves Intact (Left-sided facial droop and upper eye lid droop) Psy/Mental Status: Alert, Agitated - Patient Data Lab Results Last 24 hrs: Laboratory Results - last 24 hr 02/26/21 Range/Units 05:38 Sodium 140 (136-145) mEq/L Potassium 3.2 L (3.5-5.1) mEq/L Chloride 105 (98-107) mEq/L Carbon Dioxide 26 (21-32) mEq/L Anion Gap 12.2 (5-15) BUN 13 (7-18) mg/dL Creatinine 0.7 (0.7-1.3) mg/dL Est Cr Clr Drug Dosing 92.88 mL/min Estimated GFR (MDRD) > 60 (>60) mL/min BUN/Creatinine Ratio 18.6 H (14-18) Glucose 89 (70-99) mg/dL Calcium 8.3 L (8.5-10.1) mg/dL Magnesium 1.8 (1.8-2.4) mg/dL Result Diagrams: 02/25/21 05:30 02/26/21 05:38 Sepsis Event Note - Evaluation Sepsis Screening Result: No Definite Risk - Focused Exam Vital Signs: Vital Signs Temp Temp Pulse Resp BP Pulse Ox 02/26/21 03:29 36.8 C 70 13 128/95 H 96 02/25/21 22:10 36.6 C 67 13 153/91 H 99 - Problem List & Annotations (1) Acute cerebrovascular accident (CVA) due to embolism of right middle cerebral artery SNOMED Code(s): 763867505375691212 Code(s): I63.411 - CEREB INFRC DUE TO EMBOLISM OF RIGHT MIDDLE CEREBRAL ARTERY Status: Acute Priority: High Current Visit: Yes (2) Hypertension SNOMED Code(s): 15662657 Code(s): I10 - ESSENTIAL (PRIMARY) HYPERTENSION Status: Acute Priority: High Current Visit: Yes Qualifiers: Hypertension type: primary hypertension Qualified Code(s): I10 - Essential (primary) hypertension Annotation/Comment:: The patient requires permissive hypertension with systolic blood pressure between 150 and 170 mmHg to assist with cerebral perfusion (3) Spastic hemiparesis of left nondominant side due to acute cerebral infarction SNOMED Code(s): 699905807, 316777082 Code(s): I63.9 - CEREBRAL INFARCTION, UNSPECIFIED; G81.14 - SPASTIC HEMIPLEGIA AFFECTING LEFT NONDOMINANT SIDE Status: Acute Priority: High Current Visit: Yes (4) Dysphagia due to recent cerebrovascular accident SNOMED Code(s): 47019515, 320696360 Code(s): I69.391 - DYSPHAGIA FOLLOWING CEREBRAL INFARCTION Status: Acute Priority: High Current Visit: Yes (5) Pedal edema SNOMED Code(s): 710842216 Code(s): R60.0 - LOCALIZED EDEMA Status: Acute Priority: High Current Visit: Yes (6) Tobacco use SNOMED Code(s): 280716923 Code(s): Z72.0 - TOBACCO USE Status: Chronic Priority: High Current Visit: Yes (7) Acute alteration in mental status SNOMED Code(s): 150908310, 794781593 Code(s): R41.82 - ALTERED MENTAL STATUS, UNSPECIFIED Status: Acute Priority: High Current Visit: Yes - Problem List Review Problem List Initiated/Reviewed/Updated: Yes - My Orders Last 24 Hours: My Active Orders 02/25/21 08:00 Sodium Chloride 0.9% [Normal Saline] 1,000 ml IV ASDIRECTED 02/25/21 09:00 Metoprolol Succinate [Toprol XL] 50 mg PO DAILY Remove Patch 1 ea TRDERM DAILY lisinopriL [Prinivil] 10 mg PO DAILY 02/25/21 15:25 cloNIDine [Catapres] 0.2 mg PO Q8H PRN - Assessment Assessment:: The patient is a 65-year-old gentleman who had been admitted due to acute to subacute stroke of the right parietal area. The patient had swallow study completed and he has been placed on dysphagia diet with nectar thickened liquids. This diet has been ordered. The patient also has some alteration in his mental status and I believe this is acute and he should be reoriented frequently in order to help improve his mental status. Repeat laboratory studies have been ordered. PT OT will be continued for the patient. DVT prophylaxis will continue with the use of heparin. He also has nicotine patch for his previous tobacco use. 14 mg patch has been ordered daily. The patient will need to have long-term care and rehabilitation to regain some function of his left side. The patient will continue to be in the permissive hypertensive state in order to help cerebral perfusion through edema. The patient should be appropriate for discharge to rehabilitation facility in 1 to 2 days. 02/25/2021 The patient is a 65-year-old gentleman who is currently awaiting placement. This is due to his spastic left-sided hemiparesis from right-sided parietal stro ke. He is currently tolerating his dysphagia diet with thickened liquids. The patient is still somewhat confused. Continue to reorient frequently. PT OT will continue. He also has a nicotine patch for his tobacco addiction withdrawal symptoms. The patient's blood pressure medications have been changed to oral and these will be adjusted as necessary to help improve the patient's blood pressure slowly. Repeat laboratory studies have been ordered for the morning. The patient should also be appropriate for discharge once rehab is available. 02/26/2021 The patient is a 65-year-old gentleman who is currently awaiting placement. He is still in hospitalization with inability to ambulate due to his spastic left- sided hemiparesis. Patient has been tolerating his diet and he will continue to have the dysphagia diet with thickened liquids. He was noted to be confused yesterday and this is somewhat resolved this morning. PT OT will continue. The patient's blood pressure medications will be continued and his vital signs will be monitored and this will be adjusted as necessary. It has been noted by nursing staff that when the patient has his blood pressure taken on his right side he will stiffen up his arm and this is likely causing inaccurate blood pres sure readings. Patient should be appropriate for transfer to placement tomorrow or Saturday. Continue to reorient the patient. - Plan Plan:: The patient is a 65-year-old gentleman who has been admitted to acute hospitalization as an inpatient from the emergency department. This is due to stroke that occurred approximately 2 days ago. The patient will require permissive hypertension to keep his blood pressure between 150 and 170 systolic millimeters of mercury. Medications will be added as needed for hypertension. The patient is also NPO currently until swallow eval from speech therapy that has been ordered. The patient is on IV normal saline at 125 mL/h. The patient also has bilateral pedal edema and this is a concern for cardiac issues that may have contributed to his stroke and a 2D echocardiogram has been ordered. The patient does have elevation of his B natruretic peptide at 3000 and this can likely represent hypertensive heart failure. Will monitor the patient's fluid status closely. The patient has dense spastic left-sided hemiparesis and PT OT has also been ordered. The patient will likely require rehabilitation for possible improvement in his situation. The patient has been started on heparin for anticoagulation. The patient has been ordered to have nicotine patch however he says that he can stop chewing tobacco without problems. Upon discharge the patient will likely need to have dual antiplatelet therapy. He is also been started on a statin. Repeat laboratory studies have been ordered. The patient has said that he wants to be resuscitated in spite of having advanced directives recommending DNR/DNI. The patient will be kept in full CODE STATUS for now.
[2021-02-26] MEDS ORDERED: Potassium Chloride 10 MEQ in Premix Bag 1 BAG IV SCH (08:15)
[2021-02-26] MEDS: Lisinopril 10 MG Tab PO SCH (08:26)
[2021-02-26] MEDS: Metoprolol Succinate 50 MG Tab.ER PO SCH (08:27)
[2021-02-26] MEDS: Potassium Chloride 10 MEQ in Premix Bag 1 BAG IV SCH ×2 (08:35→11:58)
[2021-02-26] MEDS: Nicotine 14 MG/24 Hr Patch TRDERM SCH (11:59)
[2021-02-26] MEDS: cloNIDine 0.1 MG Tab PO PRN (15:50)
[2021-02-26] MEDS: atorvaSTATin 40 MG Tab PO SCH (22:01)
[2021-02-27] MEDS: Heparin Sodium 5,000 Units/ML Vial SUBCUT SCH (05:43)
[2021-02-27] MEDS: cloNIDine 0.1 MG Tab PO PRN (07:58)
[2021-02-27] MEDS: Nicotine 14 MG/24 Hr Patch TRDERM SCH (08:01)
[2021-02-27] MEDS: Lisinopril 10 MG Tab PO SCH (09:41)
[2021-02-27] MEDS: Metoprolol Succinate 50 MG Tab.ER PO SCH (09:41)
[2021-02-27] MEDS ORDERED: oxyCODONE 5 MG Tab PO PRN (10:24)
[2021-02-27] MEDS ORDERED: Magnesium Sulfate/Water 2 GM in Premix Bag 1 BAG IV ONE (10:47)
[2021-02-27] MEDS ORDERED: Potassium Chloride 20 MEQ Tab.ER PO ONE (10:47)
--- NOTE | 2021-02-27 10:50 | PCM.DCSUM1 ---
Discharge Summary - Discharge Data Discharge Date: 02/27/21 Discharge Disposition: DC/Tfer to SNF 03 Condition: Fair - Referral to Home Health Primary Care Physician: PCP None - Discharge Diagnosis/Problem(s) (1) Acute cerebrovascular accident (CVA) due to embolism of right middle cerebral artery SNOMED Code(s): 007605221798564908 ICD Code: I63.411 - CEREB INFRC DUE TO EMBOLISM OF RIGHT MIDDLE CEREBRAL ARTERY Status: Acute Priority: High Current Visit: Yes (2) Hypertension SNOMED Code(s): 78000151 ICD Code: I10 - ESSENTIAL (PRIMARY) HYPERTENSION Status: Chronic Priority: High Current Visit: Yes Problem Details: The patient requires permissive hypertension with systolic blood pressure between 150 and 170 mmHg to assist with cerebral perfusion Qualifiers: Hypertension type: primary hypertension Qualified Code(s): I10 - Essential (primary) hypertension (3) Spastic hemiparesis of left nondominant side due to acute cerebral infarction SNOMED Code(s): 096091716, 762009456 ICD Code: I63.9 - CEREBRAL INFARCTION, UNSPECIFIED; G81.14 - SPASTIC HEMIPLEGIA AFFECTING LEFT NONDOMINANT SIDE Status: Acute Priority: High Current Visit: Yes (4) Dysphagia due to recent cerebrovascular accident SNOMED Code(s): 65625686, 088943302 ICD Code: I69.391 - DYSPHAGIA FOLLOWING CEREBRAL INFARCTION Status: Acute Priority: High Current Visit: Yes (5) Pedal edema SNOMED Code(s): 797627105 ICD Code: R60.0 - LOCALIZED EDEMA Status: Acute Priority: High Current Visit: Yes (6) Tobacco use SNOMED Code(s): 754715840 ICD Code: Z72.0 - TOBACCO USE Status: Chronic Priority: High Current Visit: Yes (7) Acute alteration in mental status SNOMED Code(s): 545510070, 130550001 ICD Code: R41.82 - ALTERED MENTAL STATUS, UNSPECIFIED Status: Acute Priority: High Current Visit: Yes - Patient Summary/Data Consults: Consultations 02/23/21 13:18 OT Evaluation and Treatment [CONS] Routine PT Evaluation and Treatment [CONS] Routine IP TECHNOLOGY TRANSACTIONS ATTORNEY Evaluation and Treatment [CONS] Routine Hospital Course: The patient is a 65-year-old gentleman who had been admitted to acute hospitalization on February 23, 2021 due to a subacute right parietal stroke. The patient also had reported that the symptoms happened over 48 hours prior to presentation in the emergency department. The patient has been noted to have left-sided dense spastic hemiparesis that has improved somewhat during his hospitalization. Initially the patient's speech was slurred and he had was having difficulty swallowing and a swallow study was conducted and he had been recommended to have a dysphagia diet with nectar thickened liquids. The patient had been anticoagulated with the use of heparin. The patient initially was noted to have hypertension and the patient was started on Vasotec with permissive hypertension to keep his blood pressure between 150 and 170. During hospitalization the patient also had required clonidine 0.2 mg p.o. every 8 hours as needed hypertension. It was noticed that because of the spastic hemiparesis that even when the patient had blood pressures taken on his right side he would tense up and it was thought that this was likely also contributing to his increased systolic or diastolic blood pressure. MRI of his brain was obtained on February 23, 2021 which showed diffuse since the end changes, several small acute white matter infarcts within the periventricular white matter in the right parietal region and adjacent small area within the right manzanares radiata. The patient also had a 2D echocardiogram obtained and results are currently pending. The patient also had worked with the physical therapy in-house and had improved somewhat. The patient will be discharged on antiplatelet therapy consisting of enteric-coated aspirin 81 mg p.o. daily. He is also been started on lisinopril/hydrochlorothiazide 20/12.5 mg p.o. daily. Patient has been started on metoprolol succinate 50 mg p.o. daily for his hypertension control. The patient has not had a primary care physician in many years and may need to have his antihypertensive medications adjusted. He is also been started on statin therapies with the use of atorvastatin 40 mg p.o. daily. The patient also had been noted to be a smokeless tobacco user and he was given a prescription for nicotine 14 mg transdermal patches. The patient also had been given a prescription for oxycodone 5 mg p.o. every 6 hours as needed for pain. Prior to admission the patient had not been on any medications. The patient had improved to the point that he was stable and appropriate for snf care for intensive rehabilitation. The patient has been recommended to continue with his current dysphagia diet with nectar thickened liquids. PT/OT has been ordered for the patient. He is otherwise to have activity as tolerated. The patient has been hemodynamically stable and has been discharged from acute hospitalization with the recommendations above. The patient is in a full resuscitation code. - Patient Instructions Diet, Other: Dysphagia diet with nectar thickened liquids Activity: As Tolerated - Discharge Plan *PRESCRIPTION DRUG MONITORING PROGRAM REVIEWED*: No *COPY OF PRESCRIPTION DRUG MONITORING REPORT IN PATIENT DIPIKA: No Prescriptions/Med Rec: Aspirin [Aspirin EC] 81 mg PO DAILY #30 tablet. Nicotine [Habitrol] 14 mg TRDERM DAILY #21 patch atorvaSTATin [Lipitor] 40 mg PO BEDTIME #30 tablet Lisinopril/Hydrochlorothiazide [Lisinopril-Hctz 20-12.5 mg Tab] 1 each PO DAILY #30 tablet Metoprolol Succinate 50 mg PO DAILY #30 tab.er.24h oxyCODONE 5 mg PO Q6H PRN #20 tablet PRN Reason: Pain (Moderate 4-6) Tobacco Cessation Medication: Prescription Given Home Medications: Home Meds Aspirin [Aspirin EC] 81 mg PO DAILY #30 tablet. 02/27/21 [Rx] Lisinopril/Hydrochlorothiazide [Lisinopril-Hctz 20-12.5 mg Tab] 1 each PO DAILY #30 tablet 02/27/21 [Rx] Metoprolol Succinate 50 mg PO DAILY #30 tab.er.24h 02/27/21 [Rx] Nicotine [Habitrol] 14 mg TRDERM DAILY #21 patch 02/27/21 [Rx] atorvaSTATin [Lipitor] 40 mg PO BEDTIME #30 tablet 02/27/21 [Rx] oxyCODONE 5 mg PO Q6H PRN #20 tablet 02/27/21 [Rx] Other Amb Orders: OT Evaluation and Treatment [CONS] Location: None Selected PT Evaluation and Treatment [CONS] Location: None Selected Oxygen Therapy Mode: Room Air Patient Handouts: Medicines After an Ischemic Stroke, Stroke Prevention, Hurt-je-[id number], Ischemic Stroke, Yozr-jn-[id number], Rehabilitation After a Stroke, Adult, Smokeless Tobacco Information, Adult, Steps to Quit Smoking Forms: ED Department Discharge Referrals: Peter Dubois MD [Ordering Only Provider] - 03/08/21 11:30 am (This will be to establish care and follow up from hospital visit) - Discharge Summary/Plan Comment DC Time >30 min.: Yes Total # of Minutes for Discharge Time: 50 - General Info Date of Service: 02/27/21 Admission Dx/Problem (Free Text: Admission Diagnosis/Problem Admission Diagnosis/Problem CVA, Cerebrovascular accident right parietal with dense spastic left-sided hemiparesis. Subjective Update: The patient says that he is doing better today. He has more strength. He has had some increasing pain and had been given narcotic pain medications for this. Functional Status: Reports: Pain Controlled, Tolerating Diet - Review of Systems General: Reports: No Symptoms HEENT: Reports: No Symptoms Pulmonary: Reports: No Symptoms Cardiovascular: Reports: No Symptoms Gastrointestinal: Reports: No Symptoms Genitourinary: Reports: No Symptoms Musculoskeletal: Reports: Back Pain, Leg Pain Skin: Reports: No Symptoms Neurological: Reports: No Symptoms Psychiatric: Reports: No Symptoms - Patient Data Vitals - Most Recent: Last Vital Signs Temp 36.4 C 02/27/21 07:31 Pulse 60 02/27/21 09:41 Resp 18 02/27/21 07:31 BP 176/92 H 02/27/21 09:41 Pulse Ox 96 02/27/21 07:31 Weight - Most Recent: 67.268 kg I&O - Last 24 hours: Intake & Output 02/26/21 02/27/21 02/27/21 22:59 06:59 14:59 Intake Total 1160 1343 Balance 1160 1343 Lab Results - Last 24 hrs: Laboratory Results - last 24 hr 02/27/21 02/27/21 Range/Units 06:47 06:47 WBC 4.28 (4.23-9.07) K/mm3 RBC 3.82 L (4.63-6.08) M/mm3 Hgb 11.8 L D (13.7-17.5) gm/dl Hct 35.5 L (40.1-51.0) % MCV 92.9 H (79.0-92.2) fl MCH 30.9 (25.7-32.2) pg MCHC 33.2 (32.2-35.5) g/dl RDW Std Deviation 43.9 (35.1-43.9) fL Plt Count 168 (163-337) K/mm3 MPV 10.3 (9.4-12.3) fl Neut % (Auto) 53.8 (34.0-67.9) % Lymph % (Auto) 33.2 (21.8-53.1) % [place] % (Auto) 9.1 (5.3-12.2) % Eos % (Auto) 3.0 (0.8-7.0) Baso % (Auto) 0.9 (0.1-1.2) % Neut # (Auto) 2.30 (1.78-5.38) K/mm3 Lymph # (Auto) 1.42 (1.32-3.57) K/mm3 [place] # (Auto) 0.39 (0.30-0.82) K/mm3 Eos # (Auto) 0.13 (0.04-0.54) K/mm3 Baso # (Auto) 0.04 (0.01-0.08) K/mm3 Sodium 143 (136-145) mEq/L Potassium 3.4 L (3.5-5.1) mEq/L Chloride 107 (98-107) mEq/L Carbon Dioxide 27 (21-32) mEq/L Anion Gap 12.4 (5-15) BUN 12 (7-18) mg/dL Creatinine 0.8 (0.7-1.3) mg/dL Est Cr Clr Drug Dosing 81.27 mL/min Estimated GFR (MDRD) > 60 (>60) mL/min BUN/Creatinine Ratio 15.0 (14-18) Glucose 95 (70-99) mg/dL Calcium 8.2 L (8.5-10.1) mg/dL Magnesium 1.6 L (1.8-2.4) mg/dL Med Orders - Current: Current Medications Atorvastatin Calcium (Atorvastatin 40 Mg Tab) 40 mg PO BEDTIME [facility] Last Admin: 02/26/21 22:01 Dose: 40 mg Documented by: Clonidine HCl (Clonidine 0.1 Mg Tab) 0.2 mg PO Q8H PRN PRN Reason: Hypertension Last Admin: 02/27/21 07:58 Dose: 0.2 mg Documented by: Heparin Sodium (Porcine) (Heparin Sodium 5,000 Units/Ml Vial) 5,000 units SUBCUT Q8H [facility] Last Admin: 02/27/21 05:43 Dose: 5,000 units Documented by: Sodium Chloride (Normal Saline) 1,000 mls @ 75 mls/hr IV ASDIRECTED [facility] Last Admin: 02/26/21 18:22 Dose: 75 mls/hr Documented by: Magnesium Sulfate 2 gm/ Premix 50 mls @ 25 mls/hr IV ONETIME ONE Stop: 02/27/21 12:46 Lisinopril (Lisinopril 10 Mg Tab) 10 mg PO DAILY [facility] Last Admin: 02/27/21 09:41 Dose: 10 mg Documented by: Metoprolol Succinate (Metoprolol Succinate 50 Mg Tab.Er) 50 mg PO DAILY [facility] Last Admin: 02/27/21 09:41 Dose: 50 mg Documented by: Miscellaneous Information (Remove Nicotine Patch) 1 ea TRDERM DAILY [facility] Last Admin: 02/26/21 11:59 Dose: Not Given Documented by: Nicotine (Nicotine 14 Mg/24 Hr Patch) 14 mg TRDERM DAILY [facility] Last Admin: 02/27/21 08:01 Dose: 14 mg Documented by: Ondansetron HCl (Ondansetron 4 Mg Tab.Dis) 4 mg PO Q4H PRN PRN Reason: nausea, able to take PO Oxycodone HCl (Oxycodone 5 Mg Tab) 5 mg PO Q6H PRN PRN Reason: Pain (moderate 4-6) Potassium Chloride (Potassium Chloride 20 Meq Tab.Er) 20 meq PO ONETIME ONE Stop: 02/27/21 10:48 Discontinued Medications Amlodipine Besylate (Amlodipine 10 Mg Tab) 10 mg PO ONETIME ONE Stop: 02/23/21 12:13 Last Admin: 02/23/21 12:22 Dose: 10 mg Documented by: Enalaprilat (Enalaprilat 1.25 Mg/Ml Sdv) 1.25 mg IVPUSH ONETIME ONE Stop: 02/23/21 12:14 Last Admin: 02/23/21 12:32 Dose: 1.25 mg Documented by: Enalaprilat (Enalaprilat 1.25 Mg/Ml Sdv) 1.25 mg IVPUSH Q6H PRN PRN Reason: Hypertension Last Admin: 02/25/21 04:15 Dose: 1.25 mg Documented by: Dextrose/Lactated Ringer's (Dextrose 5%-Lactated Ringers) 1,000 mls @ 125 mls/hr IV ASDIRECTED [facility] Last Admin: 02/23/21 08:53 Dose: 125 mls/hr Documented by: Ceftriaxone Sodium 2 gm/ (Sodium Chloride) 100 mls @ 200 mls/hr IV ONETIME ONE Stop: 02/23/21 12:49 Last Admin: 02/23/21 12:39 Dose: 200 mls/hr Documented by: Sodium Chloride (Normal Saline) 1,000 mls @ 125 mls/hr IV ASDIRECTED [facility] Last Admin: 02/25/21 04:17 Dose: 125 mls/hr Documented by: Magnesium Sulfate 2 gm/ Premix 50 mls @ 25 mls/hr IV ONETIME ONE Stop: 02/25/21 08:57 Last Admin: 02/25/21 07:52 Dose: 25 mls/hr Documented by: Potassium Chloride 10 meq/ (Premix) 0 mls @ 100 mls/hr IV Q1H [facility] Stop: 02/26/21 09:16 Last Admin: 02/26/21 08:38 Dose: Not Given Documented by: Potassium Chloride 10 meq/ (Premix) 100 mls @ 100 mls/hr IV Q1H [facility] Stop: 02/26/21 10:29 Last Admin: 02/26/21 11:58 Dose: 100 mls/hr Documented by: Labetalol HCl (Labetalol 100 Mg/20 Ml Mdv) 20 mg IVPUSH ONETIME ONE; Protocol Stop: 02/23/21 12:13 Last Admin: 02/23/21 12:25 Dose: 20 mg Documented by: Labetalol HCl (Labetalol 100 Mg/20 Ml Mdv) 5 mg IVPUSH Q4H PRN PRN Reason: Hypertension Last Admin: 02/24/21 18:19 Dose: 5 mg Documented by: Lorazepam (Lorazepam 2 Mg/Ml Sdv) 1 mg IVPUSH ONETIME ONE Stop: 02/23/21 09:45 Last Admin: 02/23/21 09:59 Dose: 1 mg Documented by: Morphine Sulfate (Morphine 2 Mg/Ml Syringe) 2 mg IVPUSH Q2H PRN PRN Reason: Pain (severe 7-10) Stop: 02/24/21 13:20 Potassium Bicarbonate (Potassium Bicarbonate/Cit Ac 10 Meq Effervescent Tab) 10 meq PO ONETIME ONE Stop: 02/25/21 06:59 Last Admin: 02/25/21 07:52 Dose: 10 meq Documented by: - Exam Quality Assessment: Reports: DVT Prophylaxis. Denies: Supplemental Oxygen General: Reports: Alert, Oriented, Cooperative HEENT: Reports: Pupils Equal, Pupils Reactive, EOMI. Denies: Mucous Membr. Moist/[place] (Dry) Neck: Reports: Supple, Trachea Midline Lungs: Reports: Clear to Auscultation, Normal Respiratory Effort Cardiovascular: Reports: Regular Rate, Regular Rhythm GI/Abdominal Exam: Normal Bowel Sounds, Soft, Non-Tender, No Distention (Male) Exam: Deferred Rectal (Males) Exam: Deferred Back Exam: Denies: Normal Inspection (Appropriate for age), Full Range of Motion (Limited range of motion) Extremities: No Pedal Edema. No: Normal Inspection (Left-sided dense spastic hemiparesis) Neurological: Reports: No New Focal Deficit, Normal Speech (Improved). Denies: Normal Gait, Strength Equal Bilateral (The patient has some improvement in his strength and motion) Psy/Mental Status: Reports: Alert, Normal Affect, Normal Mood *Q Meaningful Use (DIS) - VTE *Q VTE Mechanical Contraindications *Q: At Risk for Falls
== END 2021-02-27 12:39 | DRG 65 ==
LOC: JD.ED 08:17 → JD.MS 12:16 → UNDOADMIN 12:44 → JD.MS 12:44
PROVIDERS: ADMIT Internal Medicine; ATTEND Internal Medicine
DX: I63.411 Cerebral infarction due to embolism of right middle cerebral artery (principal); G81.14 Spastic hemiplegia affecting left nondominant side; I10 Essential (primary) hypertension; N39.0 Urinary tract infection, site not specified; F17.220 Nicotine dependence, chewing tobacco, uncomplicated; I63.311 Cerebral infarction due to thrombosis of right middle cerebral artery; F10.20 Alcohol dependence, uncomplicated; I69.391 Dysphagia following cerebral infarction; F17.290 Nicotine dependence, other tobacco product, uncomplicated; Z66 Do not resuscitate; Z20.822 Contact with and (suspected) exposure to COVID-19; H91.90 Unspecified hearing loss, unspecified ear; I11.0 Hypertensive heart disease with heart failure; I50.9 Heart failure, unspecified
CPT/HCPCS: 36415; 70450; 70551; 71045; 80053; 80307; 81001; 82553; 82977; 83605; 83735; 83880; 84484; 85025; 85610; 85730; 86140; 87086; 93005; 96374; 99285; A9270; G0103; J0696; J2060; J3490; J7121; U0002; 80048; 92610-GN; 93010; 93306; 97110-GP; 97162-GP; 97530-GP; 99223; 99233; 99239; J1644; J3475; J3480; J7030

== ENCOUNTER 2021-07-14 14:49 | Emergency (ER) | payer MEDICARE | END 2021-07-14 17:49 | disposition home or self-care (01) | LOC: JD.ED 14:49 | DX: H92.21 Otorrhagia, right ear (principal); I10 Essential (primary) hypertension; Z79.82 Long term (current) use of aspirin; Z79.899 Other long term (current) drug therapy | CPT/HCPCS: 99282 ==